=== PATIENT | female | born 1945 | race Caucasian/White ===

== ENCOUNTER → 2017-10-26 | Outpatient (CLI) | payer MEDICARE, OTHER ==
[~2017-10-26] MED LIST: ASPI-586 PO; CHOL200012 PO; FURO40TA4 PO; LOSA50TA36 PO; MULT-974 PO; OMEG300C3 PO
--- NOTE | 2017-10-26 12:56 | Diagnostic Imaging Report ---
INDICATION: Persistent cough. PA and lateral views of the chest are obtained. Comparison is made to study of 12/01/2015. FINDINGS: Heart size and pulmonary vascularity are within normal limits. There is minimal linear atelectasis or scarring in the lung bases. No consolidation is identified. Densely calcified right azygos region lymph node is present. IMPRESSION: Linear atelectasis and/or scarring with evidence of granulomatous residua in the mediastinum. Dictated by: Dictated on workstation # [id number]
== END ==
LOC: RAD 11:22
PROVIDERS: ATTEND Nurse Practitioner Family
DX: J44.9 Chronic obstructive pulmonary disease, unspecified (principal)
CPT/HCPCS: 71046

== ENCOUNTER 2018-08-22 23:09 | Emergency (ER) | payer MEDICARE, OTHER ==
[~2018-08-22] VITALS: Ht 162.6 cm; Wt 104.3 kg
[~2018-08-22 23:09] MED LIST changes: -LOSA50TA36 PO; +LOSA50TA63 PO
--- NOTE | 2018-08-22 23:37 | ED Cardiac General ---
History of Present Illness General Chief Complaint: Cardiac/General Problems Stated Complaint: HIGH BLOOD PRESSURE 208/96 Source: patient Exam Limitations: no limitations History of Present Illness Date Seen by Provider: Aug 22, 2018 Time Seen by Provider: 23:15 Initial Comments PT ARRIVES VIA POV FROM HOME C/O ELEVATED BLOOD PRESSURE PT STATES HER BLOOD PRESSURE HAS BEEN FLUCTUATING ALOT SINCE MAY HAS BEEN SEEING MANAGING DIRECTOR VASU HERRERA AT [facility], LAST VISIT WAS 1 WEEK AGO ( PT IS ESTABLISHED WITH DR. CHEN, BUT HAS NOT SEEN HIM ABOUT THIS PROBLEM) PT HAS BEEN ON CARVEDILOL BID FOR YEARS, WITH NO CHANGES IN DOSES PT WAS ON LISINOPRIL ONCE DAILY, THEN WAS INCREASED TO TWICE A DAY, PT STATES "BUT HE DIDN'T THINK IT WAS DOING A GOOD ENOUGH JOB" AT LOWERING HER BLOOD PRESSURE, SO IT WAS DC'D AND LOSARTAN ONCE A DAY WAS STARTED 1 WEEK AGO PT STATES SHE WAS INSTRUCTED TO CHECK HER BLOOD PRESSURE TWICE A DAY EVERY DAY-- HAVE BEEN RUNNING 130'S TO 170'S SYSTOLIC, 80'S TO 90'S DIASTOLIC, WITH HEART RATE IN 50'S TO 60'S BLOOD PRESSURE READINGS FOR TODAY WERE : 164/94 AT 0630 202/106 AT 1900 208/96 AT 2230 TOOK HER EVENING DOSE OF CARVEDILOL TONIGHT AND 1900 AND IT DID NOT COME DOWN AND "GOT SCARED" AND CAME HERE. STATES IT HAS NEVER BEEN IN THE 200'S BEFORE. PT HAS HISTORY OF ATRIAL FIB AND IS ON ELIQUIS. NO PALPITATIONS PT IS COMPLETELY ASYMPTOMATIC, AND OTHERWISE WOULD NOT KNOW THAT HER BLOOD PRESSURE WAS ELEVATED IF SHE HAD NOT CHECKED IT. NO CHEST PAIN NO SHORTNESS OF BREATH--PT HAS COPD AND IS ALWAYS A LITTLE SHORT OF BREATH NO PALPITATIONS NO HEADACHE NO DIZZINESS NO VISION CHANGES NO NAUSEA/VOMITING NO PARESTHESIAS OR MOTOR DEFICITS NO CHANGE IN CHRONIC LEG SWELLING PCP: [facility], DANIELLE HERRERA BELLMAN DRIVER: DR. CHEN Allergies and Home Medications Allergies Coded Allergies: Sulfa (Sulfonamide Antibiotics) (Verified Allergy, Unknown, 06/24/15) Home Medications Aspirin 81 Mg Tablet.dr, 81 MG PO DAILY, (Reported) Furosemide 40 Mg Tablet, 1 TAB PO DAILY, (Reported) Losartan Potassium 50 Mg Tablet, 75 MG PO DAILY, (Reported) Driggs-3 Fatty Acids 300 Mg Capsule, 300 MG PO DAILY, (Reported) Patient Home Medication List Home Medication List Reviewed: Yes Review of Systems Review of Systems Constitutional: no symptoms reported EENTM: No Symptoms Reported Respiratory: No Symptoms Reported Cardiovascular: No Symptoms Reported, See HPI Gastrointestinal: No Symptoms Reported Genitourinary: No Symptoms Reported Musculoskeletal: no symptoms reported Skin: no symptoms reported Psychiatric/Neurological: No Symptoms Reported Endocrine: No Symptoms Reported Hematologic/Lymphatic: No Symptoms Reported Past Buviskt-Tmihdi-Zxaqeg Hx Patient Social History Alcohol Use: Occasionally Uses Recreational Drug Use: No Smoking Status: Former Smoker (SMOKED 1 PPD FROM [id number]) Type Used: Cigarettes Recent Foreign Travel: No Contact w/Someone Who Travel: No Seasonal Allergies Seasonal Allergies: Yes Past Medical History Surgeries: Yes (CARDIAC CATH--NO INTERVENTION; RIGHT KNEE SURGERY 1981) Adenoidectomy, Orthopedic, Tonsillectomy Respiratory: Yes COPD Cardiac: Yes Atrial Fibrillation, Chronic Edema/Swelling, High Cholesterol, Hypertension Neurological: No 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 0.0oz. 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 Norm as 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 Skin: Normal Color, Warm/Dry Progress/Results/Core Measures Results/Orders Lab Results Laboratory Tests Test 08/22/18 23:38 Range/Units White Blood Count 8.4 4.3-11.0 10^3/uL Red Blood Count 4.51 4.35-5.85 10^6/uL Hemoglobin 12.4 11.5-16.0 G/DL Hematocrit 38 35-52 % Mean Corpuscular Volume 83 80-99 FL Mean Corpuscular Hemoglobin 28 25-34 PG Mean Corpuscular Hemoglobin Concent 33 32-36 G/DL Red Cell Distribution Width 14.7 H 10.0-14.5 % Platelet Count 246 130-400 10^3/uL Mean Platelet Volume 9.8 7.4-10.4 FL Neutrophils (%) (Auto) 63 42-75 % Lymphocytes (%) (Auto) 25 12-44 % Monocytes (%) (Auto) 7 0-12 % Eosinophils (%) (Auto) 4 0-10 % Basophils (%) (Auto) 0 0-10 % Neutrophils # (Auto) 5.3 1.8-7.8 X 10^3 Lymphocytes # (Auto) 2.1 1.0-4.0 X 10^3 Monocytes # (Auto) 0.6 0.0-1.0 X 10^3 Eosinophils # (Auto) 0.3 0.0-0.3 10^3/uL Basophils # (Auto) 0.0 0.0-0.1 10^3/uL Prothrombin Time 13.8 12.2-14.7 SEC INR Comment 1.1 0.8-1.4 Activated Partial Thromboplast Time 40 H 24-35 SEC Sodium Level 140 135-145 MMOL/L Potassium Level 4.0 3.6-5.0 MMOL/L Chloride Level 108 H 98-107 MMOL/L Carbon Dioxide Level 21 21-32 MMOL/L Anion Gap 11 5-14 MMOL/L Blood Urea Nitrogen 13 7-18 MG/DL Creatinine 0.79 0.60-1.30 MG/DL Estimat Glomerular Filtration Rate > 60 BUN/Creatinine Ratio 16 Glucose Level 104 70-105 MG/DL Calcium Level 9.2 8.5-10.1 MG/DL Corrected Calcium 9.1 8.5-10.1 MG/DL Magnesium Level 2.3 1.8-2.4 MG/DL Total Bilirubin 0.3 0.1-1.0 MG/DL Aspartate Amino Transf (AST/SGOT) 15 5-34 U/L Alanine Aminotransferase (ALT/SGPT) 16 0-55 U/L Alkaline Phosphatase 100 40-136 U/L Troponin I < 0.028 <0.028 NG/ML Total Protein 6.8 6.4-8.2 GM/DL Albumin 4.1 3.2-4.5 GM/DL TSH [place] Testing 2.39 0.35-4.94 UIU/ML My Orders Orders - CRISTOPHER MORENO DO Saline Lock/Iv-Start (08/22/18 23:28) Ekg Tracing (08/22/18 23:28) Monitor-Rhythm Ecg Trace Only (08/22/18:28) Cbc With Automated Diff (08/22/18:) Comprehensive Metabolic Panel (08/22/18 23:28) Magnesium (08/22/18 23:28) Protime With Inr (08/22/18 23:28) Partial Thromboplastin Time (08/22/18:28) Thyroid Analyzer (08/22/18 23:28) Troponin I (08/22/18 23:28) Chest 1 View, Ap/Pa Only (08/22/18 23:28) Hydralazine Injection (Apresoline Inject (08/23/18 00:30) Medications Given in ED Current Medications Medications Dose Ordered Sig/Fili Route Start Time Stop Time Status Last Admin Dose Admin Hydralazine HCl 10 mg ONCE ONCE IV 08/23/18 00:30 08/23/18 00:31 DC 08/23/18 00:58 10 MG Vital Signs/I&O 08/22/18 23:18 Temp 98.2 Pulse 60 Resp 20 B/P (MAP) 195/92 (126) Progress Progress Note : Progress Note BLOOD PRESSURE DOWN CONSISTENTLY TO 170'S/80'S ON IT'S OWN GIVEN HYDRALAZINE, AND BLOOD PRESSURE DOWN TO 125/85 , HEART RATE IN 60'S PRIOR TO DISMISSAL UNEVENTFUL ER STAY AND COMPLETELY ASYMPTOMATIC Initial ECG Impression Date: Aug 22, 2018 Initial ECG Impression Time: 23:24 Initial ECG Rate: 57 Initial ECG Rhythm: Normal Sinus Initial ECG Impression: Normal Diagnostic Imaging Comments CXR--NO ACUTE PROCESS, PENDING RADIOLOGIST REVIEW Reviewed: Reviewed by Me Departure Impression Primary Impression: Uncontrolled hypertension Disposition: 01 HOME, SELF-CARE Condition: Improved Departure-Patient Inst. Referrals: SHANTA HICKS DO (PCP) Primary Care Physician CHIKI HERRERA (Family) Primary Care Physician DHIRAJ CHEN MD FACP FAC CCDS Patient Instructions: Controlling Your Blood Pressure Through Lifestyle, DASH Diet, High Blood Pressure (DC) Add. Discharge Instructions: TAKE YOUR MEDICATIONS PRESCRIBED FOLLOW UP WITH DR. CHEN THIS WEEK FOR FURTHER CARE All discharge instructions reviewed with patient and/or family. Voiced understanding. CRISTOPHER MORENO DO Aug 22, 2018 23:37
[2018-08-22 23:46] LABS: BASOPHILS % (AUTO) 0 % (0-10); EOSINOPHILS # (AUTO) 0.3 10^3/uL (0.0-0.3); EOSINOPHILS % (AUTO) 4 % (0-10); HEMATOCRIT 38 % (35-52); HEMOGLOBIN 12.4 G/DL (11.5-16.0); LYMPHOCYTES # (AUTO) 2.1 X 10^3 (1.0-4.0); LYMPHOCYTES % (AUTO) 25 % (12-44); MEAN CORPUSCULAR HEMOGLOBIN 28 PG (25-34); MEAN CORPUSCULAR HGB CONC 33 G/DL (32-36); MEAN CORPUSCULAR VOLUME 83 FL (80-99); MEAN PLATELET VOLUME 9.8 FL (7.4-10.4); MONOCYTES # (AUTO) 0.6 X 10^3 (0.0-1.0); MONOCYTES % (AUTO) 7 % (0-12); NEUTROPHILS # (AUTO) 5.3 X 10^3 (1.8-7.8); NEUTROPHILS % (AUTO) 63 % (42-75); PLATELET COUNT 246 10^3/uL (130-400); RED CELL DISTRIBUTION WIDTH 14.7 % (10.0-14.5); WHITE BLOOD COUNT 8.4 10^3/uL (4.3-11.0)
[2018-08-23 00:02] LABS: INR 1.1 (0.8-1.4); PROTHROMBIN TIME PATIENT 13.8 SEC (12.2-14.7)
[2018-08-23 00:09] LABS: ALANINE AMINOTRANSFERASE 16 U/L (0-55); ALBUMIN 4.1 GM/DL (3.2-4.5); ALKALINE PHOSPHATASE 100 U/L (40-136); BILIRUBIN,TOTAL 0.3 MG/DL (0.1-1.0); BUN/CREATININE RATIO 16; CALCIUM 9.2 MG/DL (8.5-10.1); CARBON DIOXIDE 21 MMOL/L (21-32); CHLORIDE 108 MMOL/L (98-107); CREATININE SERUM 0.79 MG/DL (0.60-1.30); GFR ESTIMATED > 60; GLUCOSE 104 MG/DL (70-105); MAGNESIUM 2.3 MG/DL (1.8-2.4); SODIUM 140 MMOL/L (135-145); TOTAL PROTEIN 6.8 GM/DL (6.4-8.2)
[2018-08-23 00:29] LABS: TSH (THYROID ANALYZER) 2.39 UIU/ML (0.35-4.94)
[2018-08-23] MEDS ORDERED: hydrALAZINE (APESOLINE) 20 MG/ML VIAL IV ONE (00:30)
[2018-08-23 02:02] VITALS: BP 150/77
--- NOTE | 2018-08-23 09:06 | Diagnostic Imaging Report ---
INDICATION: Hypertension. TECHNIQUE: Frontal view of the chest. COMPARISON: 10/26/2017 FINDINGS: Lung volumes are normal. There are linear opacities in the lung bases which likely represent scarring, stable since the prior study. No new consolidation is seen. There is no pleural effusion or pneumothorax. The cardiac silhouette is normal in size and contour. No acute osseous abnormality is seen. IMPRESSION: Stable linear opacities in the lung bases, likely atelectasis or scarring. No new consolidation is seen. Dictated by: Dictated on workstation # [id number]
== END 2018-08-23 02:02 | disposition home or self-care (01) ==
LOC: EDUNIT# 23:09 → ER 23:11
DX: I10 Essential (primary) hypertension (principal); I48.91 Unspecified atrial fibrillation; J44.9 Chronic obstructive pulmonary disease, unspecified; E78.00 Pure hypercholesterolemia, unspecified; Z79.01 Long term (current) use of anticoagulants; Z88.2 Allergy status to sulfonamides; Z79.82 Long term (current) use of aspirin; Z87.891 Personal history of nicotine dependence; Z90.89 Acquired absence of other organs; Z98.890 Other specified postprocedural states
CPT/HCPCS: 36415; 71045; 80053; 83735; 84443; 84484; 85025; 85610; 85730; 93005; 93041

== ENCOUNTER → 2018-08-29 | Outpatient (CLI) | payer MEDICARE, OTHER ==
[~2018-08-29] VITALS: Ht 162.6 cm; Wt 103.4 kg
[~2018-08-29] MED LIST changes: -ASPI-586 PO; +CATHETER FLUSH 10 ML SYR IV PRN; -CHOL200012 PO; -FURO40TA4 PO; -LOSA50TA63 PO; -MULT-974 PO; -OMEG300C3 PO; +REGADENOSON 0.4 MG/5 ML SYR (LEXISCAN) IV ONE
[2018-08-29 08:57] VITALS: BP 148/86
== END ==
LOC: CARD 07:39
PROVIDERS: ATTEND Internal Medicine Cardiovascular Disease
DX: I10 Essential (primary) hypertension (principal); R06.02 Shortness of breath; I48.0 Paroxysmal atrial fibrillation; G47.33 Obstructive sleep apnea (adult) (pediatric); I65.23 Occlusion and stenosis of bilateral carotid arteries
CPT/HCPCS: 78452; 93017

== ENCOUNTER → 2018-12-25 | Outpatient (CLI) | payer MEDICARE, OTHER ==
[~2018-12-25] MED LIST changes: +ASPI-586 PO; -CATHETER FLUSH 10 ML SYR IV PRN; +CHOL200012 PO; +FURO40TA4 PO; +HOLD METFORMIN - RECEIVED CONTRAST 20 ML VIAL IV SCH; +IOHEXOL 350 MG/ML 100 ML (OMNIPAQUE 350) VIAL IV ONE; +LOSA50TA63 PO; +MULT-974 PO; +NS 100 ML (IVPB) BAG IV ONE; +OMEG300C3 PO; -REGADENOSON 0.4 MG/5 ML SYR (LEXISCAN) IV ONE; +RT-ALBUTEROL SULF 2.5 MG/3 ML PRE-MIX VIAL INH ONE
[2018-12-25 08:25] LABS: BUN/CREATININE RATIO 12; CREATININE SERUM 0.84 MG/DL (0.60-1.30); GFR ESTIMATED > 60
--- NOTE | 2018-12-25 09:27 | Diagnostic Imaging Report ---
PROCEDURE: CT chest with contrast only. TECHNIQUE: Multiple contiguous axial images were obtained through the chest after administration of intravenous contrast. Auto Exposure Controls were utilized during the CT exam to meet ALARA standards for radiation dose reduction. INDICATION: COPD. COMPARISON: Correlation is made to prior CT chest from 12/01/2015. FINDINGS: No axillary lymphadenopathy is detected. Calcified lymph nodes in the mediastinum are again seen consistent with prior granulomatous exposure. Small noncalcified lymph nodes in the mediastinum appear stable. No pericardial or pleural fluid is identified. No pulmonary infiltrates, nodules or masses are seen. There are centrilobular emphysematous changes in the upper lungs. Imaging through the upper abdomen again demonstrates hepatic steatosis. No other significant abnormality is seen. IMPRESSION: Overall stable CT chest when compared with exam from 12/01/2015. Dictated by: Dictated on workstation # [id number]
== END ==
LOC: RAD 07:43
PROVIDERS: ATTEND Nurse Practitioner Family
DX: J44.9 Chronic obstructive pulmonary disease, unspecified (principal); G47.33 Obstructive sleep apnea (adult) (pediatric); G47.10 Hypersomnia, unspecified; G47.34 Idiopathic sleep related nonobstructive alveolar hypoventilation; E66.09 Other obesity due to excess calories
CPT/HCPCS: 36415; 71260; 82565; 84520; 94060; 94726; 94729

== ENCOUNTER → 2019-03-06 | Outpatient (CLI) | payer MEDICARE, OTHER ==
[~2019-03-06] MED LIST changes: -HOLD METFORMIN - RECEIVED CONTRAST 20 ML VIAL IV SCH; -IOHEXOL 350 MG/ML 100 ML (OMNIPAQUE 350) VIAL IV ONE; -NS 100 ML (IVPB) BAG IV ONE; -RT-ALBUTEROL SULF 2.5 MG/3 ML PRE-MIX VIAL INH ONE
--- NOTE | 2019-03-06 12:51 | Diagnostic Imaging Report ---
INDICATION: Postmenopausal screening for osteoporosis. COMPARISON: None. FINDINGS: AP Spine L1-L4: [BMD (g/cm2): 1.142] [T-Score: -0.5] [Z-Score: 0.1] [BMD Previous: N/A] [BMD % Change: N/A] LT Hip Neck: [BMD (g/cm2): 0.872] [T-Score: -1.2] [Z-Score: -0.2] LT Hip Total: [BMD (g/cm2):0.997] [T-Score:-0.1] [Z-Score: 0.7] [BMD Previous: N/A] [BMD % Change: N/A] RT Hip Neck: [BMD (g/cm2):0.782] [T-Score:-1.8] [Z-Score:-0.8] RT Hip Total: [BMD (g/cm2):0.948] [T-score:-0.5] [Z-Score:0.3] [BMD Previous:N/A] [BMD % Change:N/A] *Indicates significant change from prior examination based on 95% confidence level. World Health Organization criteria for BMD interpretation classify patients as Normal (T-score at or above -1.0), Osteopenic (T-score between -1.0 and -2.5) or Osteoporotic (T-score at or below -2.5). LIMITATIONS AND MODIFICATION: None. FRACTURE RISK (FRAX SCORE): The ten year probability of (%): Major Osteoporotic Fracture: [N/A] Hip Fracture: [N/A] IMPRESSION: 1. Normal bone mineral density. 2. Baseline examination. 3. See below National Osteoporosis Foundation guidelines on when to potentially initiate pharmacologic therapy. Based on the National Osteoporosis Foundation Guidelines, pharmacologic treatment should be initiated in any of the following, unless clinical conditions suggest otherwise: * Any patient with prior fragility fracture of the hip or vertebrae. A spine fracture indicates 5X risk for subsequent spine fracture and 2X risk for subsequent hip fracture. * Osteoporosis (T-score <-2.5). * Postmenopausal women and men age 50 and older with low bone mass/osteopenia (T-score between -1.0 and -2.5) by DXA and 10-year major osteoporotic fracture greater than 20% or a 10-year probability of hip fracture greater than 3%. These fracture risks are supplied above in the FRAX score, if applicable. * Clinician judgement and/or patient preferences may indicate treatment for people with 10-year fracture probabilities above or below these levels. Dictated by: Dictated on workstation # [id number]
== END ==
LOC: RAD 11:28
PROVIDERS: ATTEND Nurse Practitioner Family
DX: Z00.00 Encounter for general adult medical examination without abnormal findings (principal); Z13.820 Encounter for screening for osteoporosis; Z78.0 Asymptomatic menopausal state
CPT/HCPCS: 77080

== ENCOUNTER 2019-05-03 13:42 | Outpatient (RCR) | payer MEDICARE, OTHER | END 2019-05-03 14:52 | disposition home or self-care (01) | PROVIDERS: ATTEND Physician Assistant | DX: M75.52 Bursitis of left shoulder (principal); M19.012 Primary osteoarthritis, left shoulder; M25.812 Other specified joint disorders, left shoulder ==

== ENCOUNTER → 2020-10-06 | Outpatient (CLI) | payer MEDICARE, OTHER ==
--- NOTE | 2020-10-07 11:49 | Diagnostic Imaging Report ---
EXAMINATION: Digital mammogram bilateral screening with CAD. INDICATION: Screening. COMPARISON: This study was compared to the prior exam of 11/20/2012. PERSONAL HISTORY: At this time, there are no current complaints. FINDINGS: The fibroglandular tissue in both breasts is heterogeneously dense. This does limit the sensitivity of this exam. In the interval since the previous exam, a few benign-appearing calcifications have developed in the left breast. There is also now a small 8 mm well-circumscribed asymmetry lying just anterior to the pectoralis muscle on the MLO view of the left breast. I suspect that this is a small lymph node. There is no primary or secondary sign of malignancy noted. IMPRESSION: 1. There is no evidence of malignancy. 2. The patient should have her annual bilateral screening mammogram on schedule in September 2021. ACR BI-RADS Category 1: Negative. Result letter will be mailed to the patient. Note: At least 10% of breast cancer is not imaged by mammography. Dictated by: Dictated on workstation # [id number]
== END ==
LOC: RAD 10:38
PROVIDERS: ATTEND Nurse Practitioner Family
DX: Z12.31 Encounter for screening mammogram for malignant neoplasm of breast (principal); I10 Essential (primary) hypertension
CPT/HCPCS: 77063; 77067

== ENCOUNTER 2020-12-06 15:29 | Emergency (ER) | payer MEDICARE, OTHER ==
[~2020-12-06] VITALS: Ht 162.5 cm; Wt 99.7 kg
--- NOTE | 2020-12-06 15:41 | ED Cardiac General ---
History of Present Illness General Stated Complaint: CP,JAW, L ARM Source: patient Exam Limitations: no limitations History of Present Illness Date Seen by Provider: December 06, 2020 Time Seen by Provider: 15:38 Initial Comments To ER by private vehicle with reports of palpitations and shortness of breath that began 20 minutes prior to arrival. History of atrial fibrillation she does not believe that she has had it since 2016. She is on Eliquis. She follows with Dr. Chan Timing/Duration: changing over time Severity: moderate Activities at Onset: none NTG SL TAPPER BALANCE WHEEL SCREW HOLE: No ASA po TAPPER BALANCE WHEEL SCREW HOLE: No Associated Systoms: Shortness of Air Allergies and Home Medications Allergies Coded Allergies: Sulfa (Sulfonamide Antibiotics) (Verified Allergy, Unknown, 06/24/15) Home Medications Aspirin 81 Mg Tablet.dr, 81 MG PO DAILY, (Reported) Furosemide 40 Mg Tablet, 1 TAB PO DAILY, (Reported) Losartan Potassium 50 Mg Tablet, 75 MG PO DAILY, (Reported) Hoffman-3 Fatty Acids 300 Mg Capsule, 300 MG PO DAILY, (Reported) Patient Home Medication List Home Medication List Reviewed: Yes Review of Systems Review of Systems Constitutional: see HPI EENTM: No Symptoms Reported Respiratory: See HPI, Shortness of Air Cardiovascular: See HPI, Chest Pain, Irregular Heart Rate, Palpitations Gastrointestinal: No Symptoms Reported Genitourinary: No Symptoms Reported Musculoskeletal: no symptoms reported Skin: no symptoms reported Psychiatric/Neurological: No Symptoms Reported Endocrine: No Symptoms Reported Hematologic/Lymphatic: No Symptoms Reported Past Xekhdnc-Ydyhsg-Fbjofg Hx Patient Social History Alcohol Beverage of Choice: Wine Type Used: Cigarettes Recent Hopitalizations: No Immunizations Up To Date PED Vaccines UTD: Yes Seasonal Allergies Seasonal Allergies: Yes Past Medical History Surgeries: Yes (CARDIAC CATH--NO INTERVENTION; RIGHT KNEE SURGERY 1981) Adenoidectomy, Orthopedic, Tonsillectomy Respiratory: Yes COPD Cardiac: Yes Atrial Fibrillation, Chronic Edema/Swelling, High Cholesterol, Hypertension 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 0.0oz. 103.255847mt; 39.1 BMI Method:Stated General Appearance: No Apparent Distress, WD/WN, Other (Heart rate 150 irregular on arrival atrial fibrillation.) HEENT: PERRL/EOMI, TMs Normal Respiratory: Normal Breath Sounds, No Accessory Muscle Use, No Respiratory Distress Cardiovascular: Irregularly Irregular, Tachycardia Gastrointestinal: Non Tender, Soft Extremity: Normal Capillary Refill, Normal Inspection Neurologic/Psychiatric: Alert, Oriented x3 Skin: Normal Color, Warm/Dry Progress/Results/Core Measures Results/Orders Lab Results Laboratory Tests Test 12/06/20 15:37 12/06/20 15:53 Range/Units White Blood Count 9.8 4.3-11.0 10^3/uL Red Blood Count 4.79 3.80-5.11 10^6/uL Hemoglobin 13.4 11.5-16.0 g/dL Hematocrit 41 35-52 % Mean Corpuscular Volume 86 80-99 fL Mean Corpuscular Hemoglobin 28 25-34 pg Mean Corpuscular Hemoglobin Concent 32 32-36 g/dL Red Cell Distribution Width 14.1 10.0-14.5 % Platelet Count 236 130-400 10^3/uL Mean Platelet Volume 10.3 9.0-12.2 fL Immature Granulocyte % (Auto) 0 % Neutrophils (%) (Auto) 67 42-75 % Lymphocytes (%) (Auto) 22 12-44 % Monocytes (%) (Auto) 7 0-12 % Eosinophils (%) (Auto) 3 0-10 % Basophils (%) (Auto) 0 0-10 % Neutrophils # (Auto) 6.5 1.8-7.8 10^3/uL Lymphocytes # (Auto) 2.2 1.0-4.0 10^3/uL Monocytes # (Auto) 0.7 0.0-1.0 10^3/uL Eosinophils # (Auto) 0.3 0.0-0.3 10^3/uL Basophils # (Auto) 0.0 0.0-0.1 10^3/uL Immature Granulocyte # (Auto) 0.0 0.0-0.1 10^3/uL Sodium Level 141 135-145 MMOL/L Potassium Level 3.6 3.6-5.0 MMOL/L Chloride Level 103 98-107 MMOL/L Carbon Dioxide Level 25 21-32 MMOL/L Anion Gap 13 5-14 MMOL/L Blood Urea Nitrogen 15 7-18 MG/DL Creatinine 0.90 0.60-1.30 MG/DL Estimat Glomerular Filtration Rate > 60 BUN/Creatinine Ratio 17 Glucose Level 107 H 70-105 MG/DL Calcium Level 9.5 8.5-10.1 MG/DL Corrected Calcium 9.3 8.5-10.1 MG/DL Magnesium Level 2.1 1.6-2.4 MG/DL Total Bilirubin 0.4 0.1-1.0 MG/DL Aspartate Amino Transf (AST/SGOT) 18 5-34 U/L Alanine Aminotransferase (ALT/SGPT) 18 0-55 U/L Alkaline Phosphatase 96 40-136 U/L Myoglobin 45.4 10.0-92.0 NG/ML Troponin I < 0.028 <0.028 NG/ML B-Type Natriuretic Peptide 157.6 H <100.0 PG/ML Total Protein 7.2 6.4-8.2 GM/DL Albumin 4.3 3.2-4.5 GM/DL Prothrombin Time 13.2 12.2-14.7 SEC INR Comment 1.0 0.8-1.4 Activated Partial Thromboplast Time 36 H 24-35 SEC My Orders Orders - CAROL MARCOS APRN Cbc With Automated Diff (12/06/20 15:35) Magnesium (12/06/20 15:35) Chest 1 View, Ap/Pa Only (12/06/20 15:35) Ekg Tracing (12/06/20 15:35) Comprehensive Metabolic Panel (12/06/20 15:35) Myoglobin Serum (12/06/20 15:35) Protime With Inr (12/06/20 15:35) Partial Thromboplastin Time (12/06/20 15:35) O2 (12/06/20 15:35) Monitor-Rhythm Ecg Trace Only (12/06/20 15:35) Lipid Panel (12/07/20 06:00) Ed Iv/Invasive Line Start (12/06/20 15:35) BNP (12/06/20 15:35) Troponin I (12/06/20 15:35) Aspirin Chewable Tablet (Baby Aspirin Ch (12/06/20 15:45) Diltiazem Injection (Cardizem Injection) (12/06/20 15:45) Diltiazem Drip Pre-Mix (Cardizem Drip Pr (12/06/20 15:45) Ekg Tracing (12/06/20 15:41) Medications Given in ED Current Medications Medications Dose Ordered Sig/Fili Route Start Time Stop Time Status Last Admin Dose Admin Aspirin 324 mg ONCE ONCE PO 12/06/20 15:45 12/06/20 15:46 DC 12/06/20 15:57 324 MG Departure Communication (Admissions) 1540-despite no intervention she has slowed her rate down to 74 which appears sinus in nature at this time. Will get EKG to confirm. 1642-remains sinus rhythm rate of 72 blood pressure 128/82 Impression Primary Impression: PAF (paroxysmal atrial fibrillation) Disposition: 01 HOME, SELF-CARE Condition: Stable Departure-Patient Inst. Decision time for Depature: 16:43 Referrals: RIA ANDREWS MD (PCP/Family) Primary Care Physician Patient Instructions: Atrial Fibrillation (DC) Add. Discharge Instructions: 1. Return to ER for any concerns. Follow-up with your doctor next week. CAROL MARCOS GUEST ATTENDANT December 06, 2020 15:41
[2020-12-06] MEDS ORDERED: ASPIRIN 81 MG CHEW (CHILDREN'S ASA) PO ONE (15:45)
[2020-12-06] MEDS ORDERED: dilTIAZem DRIP PRE-MIX 125 ML IV SCH (15:45)
[2020-12-06 15:54] LABS: BASOPHILS % (AUTO) 0 % (0-10); EOSINOPHILS # (AUTO) 0.3 10^3/uL (0.0-0.3); EOSINOPHILS % (AUTO) 3 % (0-10); HEMATOCRIT 41 % (35-52); HEMOGLOBIN 13.4 g/dL (11.5-16.0); LYMPHOCYTES # (AUTO) 2.2 10^3/uL (1.0-4.0); LYMPHOCYTES % (AUTO) 22 % (12-44); MEAN CORPUSCULAR HEMOGLOBIN 28 pg (25-34); MEAN CORPUSCULAR HGB CONC 32 g/dL (32-36); MEAN CORPUSCULAR VOLUME 86 fL (80-99); MEAN PLATELET VOLUME 10.3 fL (9.0-12.2); MONOCYTES # (AUTO) 0.7 10^3/uL (0.0-1.0); MONOCYTES % (AUTO) 7 % (0-12); NEUTROPHILS # (AUTO) 6.5 10^3/uL (1.8-7.8); NEUTROPHILS % (AUTO) 67 % (42-75); PLATELET COUNT 236 10^3/uL (130-400); WHITE BLOOD COUNT 9.8 10^3/uL (4.3-11.0)
[2020-12-06 16:02] LABS: ALBUMIN 4.3 GM/DL (3.2-4.5)
[2020-12-06 16:03] LABS: CHLORIDE 103 MMOL/L (98-107); POTASSIUM 3.6 MMOL/L (3.6-5.0); SODIUM 141 MMOL/L (135-145)
[2020-12-06 16:04] LABS: CALCIUM 9.5 MG/DL (8.5-10.1)
[2020-12-06 16:05] LABS: GLUCOSE 107 MG/DL (70-105); TOTAL PROTEIN 7.2 GM/DL (6.4-8.2)
[2020-12-06 16:06] LABS: CARBON DIOXIDE 25 MMOL/L (21-32)
[2020-12-06 16:07] LABS: BILIRUBIN,TOTAL 0.4 MG/DL (0.1-1.0)
[2020-12-06 16:08] LABS: ALKALINE PHOSPHATASE 96 U/L (40-136)
[2020-12-06 16:09] LABS: GFR ESTIMATED > 60
[2020-12-06 16:10] LABS: BUN/CREATININE RATIO 17
[2020-12-06 16:11] LABS: ALANINE AMINOTRANSFERASE 18 U/L (0-55); MAGNESIUM 2.1 MG/DL (1.6-2.4)
[2020-12-06 16:37] LABS: PROTHROMBIN TIME PATIENT 13.2 SEC (12.2-14.7)
--- NOTE | 2020-12-06 16:42 | Diagnostic Imaging Report ---
EXAMINATION: Portable erect AP chest at 3:49 p.m. INDICATION: Chest pain. The heart size is within normal limits and stable when compared to 08/22/2018. In the interval since the prior study a thin band of atelectasis has developed in the left lung base near the apex of the heart. The lungs are otherwise generally clear. The carotid bronchovascular markings in the right infrahilar regions seen previously are again evident and no different. The mediastinum is not widened. The osseous structures are intact. IMPRESSION: Aside from the development of a thin band of atelectasis in the left lung base there has been no significant change since the prior exam. No new abnormality has developed. Dictated by: Dictated on workstation # [id number]
[2020-12-06 16:54] VITALS: BP 123/70
== END 2020-12-06 16:59 | disposition home or self-care (01) ==
LOC: EDUNIT# 15:29 → ER 15:31
DX: I48.0 Paroxysmal atrial fibrillation (principal); I10 Essential (primary) hypertension; J44.9 Chronic obstructive pulmonary disease, unspecified; G89.29 Other chronic pain; M54.9 Dorsalgia, unspecified; Z79.01 Long term (current) use of anticoagulants
CPT/HCPCS: 36415; 71045; 80053; 83735; 83874; 83880; 84484; 85025; 85610; 85730; 93005; 93041

== ENCOUNTER 2021-04-04 18:18 | Inpatient (IN) | payer MEDICARE, OTHER ==
[~2021-04-04] VITALS: Ht 163.5 cm; Wt 105.3 kg
[2021-04-04] MEDS ORDERED: dilTIAZem120 MG (CARDIZEM CD) CAP PO ONE (18:25)
[2021-04-04 18:30] LABS: BASOPHILS # (AUTO) 0.1 10^3/uL (0.0-0.1); BASOPHILS % (AUTO) 1 % (0-10); EOSINOPHILS # (AUTO) 0.5 10^3/uL (0.0-0.3); EOSINOPHILS % (AUTO) 5 % (0-10); HEMATOCRIT 40 % (35-52); HEMOGLOBIN 13.1 g/dL (11.5-16.0); LYMPHOCYTES # (AUTO) 2.3 10^3/uL (1.0-4.0); LYMPHOCYTES % (AUTO) 24 % (12-44); MEAN CORPUSCULAR HEMOGLOBIN 29 pg (25-34); MEAN CORPUSCULAR HGB CONC 33 g/dL (32-36); MEAN CORPUSCULAR VOLUME 88 fL (80-99); MEAN PLATELET VOLUME 10.4 fL (9.0-12.2); MONOCYTES # (AUTO) 0.5 10^3/uL (0.0-1.0); MONOCYTES % (AUTO) 5 % (0-12); NEUTROPHILS # (AUTO) 6.2 10^3/uL (1.8-7.8); NEUTROPHILS % (AUTO) 65 % (42-75); PLATELET COUNT 238 10^3/uL (130-400); WHITE BLOOD COUNT 9.6 10^3/uL (4.3-11.0)
[2021-04-04] MEDS ORDERED: dilTIAZem120 MG (CARDIZEM CD) CAP PO SCH (18:30)
--- NOTE | 2021-04-04 18:30 | ED Cardiac General ---
History of Present Illness General Stated Complaint: AFIB Source: patient Exam Limitations: no limitations History of Present Illness Date Seen by Provider: Apr 04, 2021 Time Seen by Provider: 18:28 Initial Comments To ER with reports that she believes she is in atrial fibrillation. She is only had 3 episodes of atrial fibrillation over the course of the past 5 years. She follows with Dr. Chan. She denies chest pain. This began about 1 hour ago while she was eating. No chest pain. PMH of COPD, MARKOS, PAF, hypertension. Stress test in 2019 here showed no evidence of ischemia. 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 ASA po HYDRAULIC MODELING ENGINEER: No Allergies and Home Medications Allergies Coded Allergies: Sulfa (Sulfonamide Antibiotics) (Verified Allergy, Unknown, 06/24/15) Patient Home Medication List Home Medication List Reviewed: Yes Aspirin (Aspir 81) 81 Mg Tablet.dr, 81 MG PO DAILY, (Reported) Entered as Reported by: MARÍA ROCK on 06/24/15141 Furosemide (Furosemide) 40 Mg Tablet, 1 TAB PO DAILY, (Reported) Entered as Reported by: MARÍA ROCK on 06/24/15141 Losartan Potassium (Losartan Potassium) 50 Mg Tablet, 75 MG PO DAILY, (Reported) Entered as Reported by: MARÍA ROCK on 06/24/15141 [place]-3 Fatty Acids (Fish Oil) 300 Mg Capsule, 300 MG PO DAILY, (Reported) Entered as Reported by: MARÍA ROCK on 06/24/15141 Review of Systems Review of Systems Constitutional: see HPI EENTM: No Symptoms Reported Respiratory: No Symptoms Reported Cardiovascular: See HPI; Denies Chest Pain; Irregular Heart Rate, Palpitations Gastrointestinal: No Symptoms Reported Genitourinary: No Symptoms Reported Musculoskeletal: no symptoms reported Skin: no symptoms reported Psychiatric/Neurological: No Symptoms Reported Endocrine: No Symptoms Reported Hematologic/Lymphatic: No Symptoms Reported Past Fahvdcl-Jfeild-Svowri Hx Immunizations Up To Date PED Vaccines UTD: Yes Seasonal Allergies Seasonal Allergies: Yes Past Medical History Surgeries: Yes (CARDIAC CATH--NO INTERVENTION; RIGHT KNEE SURGERY 1981) Adenoidectomy, Orthopedic, Tonsillectomy Respiratory: Yes COPD Cardiac: Yes Atrial Fibrillation, Chronic Edema/Swelling, High Cholesterol, Hypertension 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 0.0oz. [id number]; 37.00 BMI Method:Stated General Appearance: No Apparent Distress, WD/WN, Other (Alert and oriented no distress very pleasant heart rate is varying from 100-1 39 atrial fibrillation. Blood pressure is adequate at 160/100. We will give a Cardizem 10 mg IV push followed by 240 mg CD tablet p.o. with the hope that we can keep her out of the hospital and still achieve rate control.) Neck: Full Range of Motion, Normal Inspection Respiratory: No Accessory Muscle Use, No Respiratory Distress Cardiovascular: Normal Peripheral Pulses, Irregularly Irregular Gastrointestinal: Normal Bowel Sounds, Non Tender, Soft Extremity: Normal Capillary Refill, Normal Inspection Neurologic/Psychiatric: Alert, Oriented x3 Skin: Normal Color, Warm/Dry Progress/Results/Core Measures Results/Orders Lab Results Laboratory Tests Test 04/04/21 18:23 Range/Units White Blood Count 9.6 4.3-11.0 10^3/uL Red Blood Count 4.60 3.80-5.11 10^6/uL Hemoglobin 13.1 11.5-16.0 g/dL Hematocrit 40 35-52 % Mean Corpuscular Volume 88 80-99 fL Mean Corpuscular Hemoglobin 29 25-34 pg Mean Corpuscular Hemoglobin Concent 33 32-36 g/dL Red Cell Distribution Width 13.9 10.0-14.5 % Platelet Count 238 130-400 10^3/uL Mean Platelet Volume 10.4 9.0-12.2 fL Immature Granulocyte % (Auto) 0 % Neutrophils (%) (Auto) 65 42-75 % Lymphocytes (%) (Auto) 24 12-44 % Monocytes (%) (Auto) 5 0-12 % Eosinophils (%) (Auto) 5 0-10 % Basophils (%) (Auto) 1 0-10 % Neutrophils # (Auto) 6.2 1.8-7.8 10^3/uL Lymphocytes # (Auto) 2.3 1.0-4.0 10^3/uL Monocytes # (Auto) 0.5 0.0-1.0 10^3/uL Eosinophils # (Auto) 0.5 H 0.0-0.3 10^3/uL Basophils # (Auto) 0.1 0.0-0.1 10^3/uL Immature Granulocyte # (Auto) 0.0 0.0-0.1 10^3/uL Prothrombin Time 13.7 12.2-14.7 SEC INR Comment 1.0 0.8-1.4 Activated Partial Thromboplast Time 38 H 24-35 SEC Sodium Level 143 135-145 MMOL/L Potassium Level 3.6 3.6-5.0 MMOL/L Chloride Level 106 98-107 MMOL/L Carbon Dioxide Level 24 21-32 MMOL/L Anion Gap 13 5-14 MMOL/L Blood Urea Nitrogen 17 7-18 MG/DL Creatinine 0.92 0.60-1.30 MG/DL Estimat Glomerular Filtration Rate 60 BUN/Creatinine Ratio 18 Glucose Level 138 H 70-105 MG/DL Calcium Level 9.5 8.5-10.1 MG/DL Corrected Calcium 9.4 8.5-10.1 MG/DL Magnesium Level 2.0 1.6-2.4 MG/DL Total Bilirubin 0.3 0.1-1.0 MG/DL Aspartate Amino Transf (AST/SGOT) 15 5-34 U/L Alanine Aminotransferase (ALT/SGPT) 17 0-55 U/L Alkaline Phosphatase 93 40-136 U/L Myoglobin 38.5 10.0-92.0 NG/ML Troponin I < 0.028 <0.028 NG/ML B-Type Natriuretic Peptide 149.5 H <100.0 PG/ML Total Protein 7.0 6.4-8.2 GM/DL Albumin 4.1 3.2-4.5 GM/DL My Orders Orders - CAROL MARCOS APRN Diltiazem Injection (Cardizem Injection) (04/04/21 18:30) Diltiazem Cd 24 Hr Capsule (Cardizem Cd (04/04/21 18:30) Diltiazem Cd 24 Hr Capsule (Cardizem Cd (04/04/21 18:30) Cbc With Automated Diff (04/04/21 18:25) Magnesium (04/04/21 18:25) Chest 1 View, Ap/Pa Only (04/04/21 18:25) Ekg Tracing (04/04/21 18:25) Comprehensive Metabolic Panel (04/04/21 18:25) Myoglobin Serum (04/04/21 18:25) Protime With Inr (04/04/21 18:25) Partial Thromboplastin Time (04/04/21 18:25) O2 (04/04/21 18:25) Monitor-Rhythm Ecg Trace Only (04/04/21 18:25) Lipid Panel (04/05/21 06:00) Ed Iv/Invasive Line Start (04/04/21 18:25) BNP (04/04/21 18:25) Troponin I (04/04/21 18:25) Diltiazem Cd 24 Hr Capsule (Cardizem Cd (04/04/21 18:25) Diltiazem Injection (Cardizem Injection) (04/04/21 18:26) Diltiazem Drip Pre-Mix (Cardizem Drip Pr (04/04/21 18:50) Diltiazem Drip Pre-Mix (Cardizem Drip Pr (04/04/21 19:30) Medications Given in ED Current Medications Medications Dose Ordered Sig/Fili Route Start Time Stop Time Status Last Admin Dose Admin Diltiazem HCl 10 mg ONCE ONCE IVP 04/04/21 18:30 04/04/21 18:31 DC 04/04/21 18:27 10 MG Vital Signs/I&O 04/04/21 18:21 Pulse 119 Resp 22 B/P (MAP) 166/112 (130) Pulse Ox 96 O2 Delivery Room Air Diagnostic Imaging Diagonstic Imaging: Xray Comments NAME: SUSANNE SUMNER Jodie MED REC#: [id number] PT STATUS: REG ER : 1945 PHYSICIAN: CAROL MARCOS APRN ADMIT DATE: 04/04/21/ER Signed Date of Exam:04/04/21 CHEST 1 VIEW, AP/PA ONLY EXAMINATION: Chest 1 view. HISTORY: Chest pain. COMPARISON: None available. FINDINGS: Heart size and pulmonary vasculature are normal. Mild bibasilar opacities. No pleural effusion or pneumothorax. The osseous structures are intact. IMPRESSION: No acute radiographic abnormality in the chest. Dictated by: Dictated on workstation # [id number] Dict: 04/04/211910 Trans: 04/04/211914 [facility] [id number] Interpreted by: MARÍA CANTU DO Electronically signed by: MARÍA CANTU DO 04/04/211914 Departure Communication (Admissions) 1834-EKG shows atrial fibrillation rate of 139 borderline prolonged QT interval at 485 ms, there is some diffuse ST depression. No ST elevation. 1855-heart rate still A. fib about 150. The 10 mg IV push does not seem to of work. We will initiate a drip at 10 mg an hour. She has had the 240 mg CD capsule. 1920-spoke with Dr. Colindres and Dr. Baugh from cardiology, we will admit, continue Cardizem drip Impression Primary Impression: PAF (paroxysmal atrial fibrillation) Additional Impression: Atrial fibrillation with RVR Disposition: ADMITTED INPATIENT Condition: Stable Admissions Decision to Admit Reason: Admit from ER (General) Decision to Admit/Date: Apr 04, 2021 Time/Decision to Admit Time: 18:57 Departure-Patient Inst. Referrals: CHIKI HERRERA (PCP/Family) Primary Care Physician CAROL MARCOS APRN Apr 04, 2021 18:30
[2021-04-04 18:38] LABS: ALBUMIN 4.1 GM/DL (3.2-4.5); POTASSIUM 3.6 MMOL/L (3.6-5.0)
[2021-04-04 18:39] LABS: CALCIUM 9.5 MG/DL (8.5-10.1)
[2021-04-04 18:42] LABS: BILIRUBIN,TOTAL 0.3 MG/DL (0.1-1.0); PROTHROMBIN TIME PATIENT 13.7 SEC (12.2-14.7)
[2021-04-04 18:44] LABS: CREATININE SERUM 0.92 MG/DL (0.60-1.30)
[2021-04-04] MEDS ORDERED: dilTIAZem DRIP PRE-MIX 125 ML IV ONE (18:50)
--- NOTE | 2021-04-04 19:16 | Diagnostic Imaging Report ---
EXAMINATION: Chest 1 view. HISTORY: Chest pain. COMPARISON: None available. FINDINGS: Heart size and pulmonary vasculature are normal. Mild bibasilar opacities. No pleural effusion or pneumothorax. The osseous structures are intact. IMPRESSION: No acute radiographic abnormality in the chest. Dictated by: Dictated on workstation # [id number]
[2021-04-04] MEDS ORDERED: dilTIAZem DRIP PRE-MIX 125 ML IV SCH ×2 (19:30→20:45)
[2021-04-04] MEDS ORDERED: LACTATED RINGERS 1,000 ML IV SCH (20:00)
[2021-04-04] MEDS ORDERED: doxAzosin 2 MG (CARDURA) TAB PO SCH (21:00)
[2021-04-04] MEDS: APIXABAN 5 MG (ELIQUIS) TABLET PO SCH (21:20)
[2021-04-05 04:53] LABS: BASOPHILS % (AUTO) 0 % (0-10); EOSINOPHILS # (AUTO) 0.4 10^3/uL (0.0-0.3); EOSINOPHILS % (AUTO) 4 % (0-10); HEMATOCRIT 35 % (35-52); HEMOGLOBIN 11.3 g/dL (11.5-16.0); LYMPHOCYTES # (AUTO) 2.4 10^3/uL (1.0-4.0); LYMPHOCYTES % (AUTO) 27 % (12-44); MEAN CORPUSCULAR HEMOGLOBIN 28 pg (25-34); MEAN CORPUSCULAR HGB CONC 32 g/dL (32-36); MEAN CORPUSCULAR VOLUME 87 fL (80-99); MEAN PLATELET VOLUME 10.6 fL (9.0-12.2); MONOCYTES # (AUTO) 0.6 10^3/uL (0.0-1.0); MONOCYTES % (AUTO) 6 % (0-12); NEUTROPHILS # (AUTO) 5.6 10^3/uL (1.8-7.8); NEUTROPHILS % (AUTO) 62 % (42-75); PLATELET COUNT 200 10^3/uL (130-400)
[2021-04-05 05:03] LABS: ALBUMIN 3.3 GM/DL (3.2-4.5)
[2021-04-05 05:04] LABS: CALCIUM 8.6 MG/DL (8.5-10.1)
[2021-04-05 05:06] LABS: TOTAL PROTEIN 5.7 GM/DL (6.4-8.2)
[2021-04-05 05:07] LABS: BILIRUBIN,TOTAL 0.3 MG/DL (0.1-1.0)
[2021-04-05 05:09] LABS: CREATININE SERUM 0.82 MG/DL (0.60-1.30); PHOSPHORUS 3.8 MG/DL (2.3-4.7)
--- NOTE | 2021-04-05 06:41 | Short Stay Summary-Hospitalist ---
History of Present Illness HPI/Chief Complaint Chief complaint: Atrial fibrillation with rapid ventricular response History of present illness: This is a 75-year-old white female clinic patient of Dr. Chan who has a history of paroxysmal atrial fibrillation and bradycardia who presented to the ER with palpitations when preparing to go to the [employer] football game. She was found to have A. fib with RVR required Cardizem drip maintained on Eliquis and Dr. Baugh was consulted. Patient is currently doing very well bradycardia continues but she is ready to go home. Source: patient, family Exam Limitations: no limitations Date Seen 04/05/21 Time Seen by a Provider: 12:00 Attending Physician Ella Colindres Michael R Cfnp Referring Physician Date of Admission Apr 04, 2021 at 19:19 Home Medications & Allergies Home Medications Reviewed patient Home Medication Reconciliation performed by pharmacy medication reconciliations hydrology technician and/or nursing. Patients Allergies have been reviewed. Allergies Allergies Coded Allergies Sulfa (Sulfonamide Antibiotics) (Verified Allergy, Unknown, 06/24/15) Past Htufcmo-Sdweyc-Mdnnjr Hx Patient Social History Marrital Status: Employed/Student: retired Tobacco Use?: No Smoking Status: Former Smoker Smokeless Tobacco Frequency: Never a User Use of E-Cig and/or Vaping dev: No Substance use?: No Alcohol Use?: Yes Alcohol type: Wine Alcohol Frequency: Once in a while Pt feels they are or have been: No Immunizations Up To Date First/Initial COVID19 Vaccinat: JUL 2020 Second COVID19 Vaccination Rolo: SEPTEMBER 2020 Tetanus Booster (TDap): Unknown PED Vaccines UTD: Yes Seasonal Allergies Seasonal Allergies: Yes Current Status status: No Advance Directives: No Communicates: Verbally Primary Language: Djiboutian Preferred Spoken Language: Djiboutian Is interpretation needed?: No Implanted or Applied Medical D: Orthopedic hardware Past Medical History Surgeries: Adenoidectomy, Orthopedic, Tonsillectomy COPD Atrial Fibrillation, Chronic Edema/Swelling, High Cholesterol, Hypertension 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 Chronic Back Pain, Fractures Blood Disorders: No Adverse Reaction/Blood Tranf: No Review of Systems Constitutional: see HPI EENTM: no symptoms reported Respiratory: no symptoms reported Cardiovascular: palpitations Gastrointestinal: no symptoms reported Genitourinary: no symptoms reported Musculoskeletal: no symptoms reported Skin: no symptoms reported Psychiatric/Neurological: No Symptoms Reported All Other Systems Reviewed Negative Unless Noted: Yes Physical Exam Physical Exam Vital Signs Vital Signs - First Documented 04/04/21 04/04/21 04/04/21 18:21 20:44 23:40 Temp 36.2 Pulse 119 Resp 22 B/P (MAP) 166/112 (130) Pulse Ox 96 O2 Delivery Room Air O2 Flow Rate 2.00 Capillary Refill : Less Than 3 Seconds Height, Weight, BMI Height: 5'4.00" Weight: 228lbs. 0.0oz. 103.082486dh; 39.01 BMI Method:Stated General Appearance: No Apparent Distress, WD/WN, Chronically ill, Other (Alert and oriented no distress very pleasant heart rate is varying from 100-1 39 atrial fibrillation. Blood pressure is adequate at 160/100. We will give a Cardizem 10 mg IV push followed by 240 mg CD tablet p.o. with the hope that we can keep her out of the hospital and still achieve rate control.) Eyes: Bilateral Eye Normal Inspection, Bilateral Eye PERRL HEENT: PERRL/EOMI, Normal ENT Inspection, Pharynx Normal Neck: Full Range of Motion, Normal Inspection Respiratory: No Accessory Muscle Use, No Respiratory Distress Cardiovascular: Normal Peripheral Pulses, Irregularly Irregular Gastrointestinal: Normal Bowel Sounds, Non Tender, Soft Back: Normal Inspection, No CVA Tenderness, No Vertebral Tenderness Extremity: Normal Capillary Refill, Normal Inspection Neurologic/Psychiatric: Alert, Oriented x3 Skin: Normal Color, Warm/Dry Lymphatic: No Adenopathy Results Results/Procedures Labs Laboratory Tests 04/04/21 18:23 04/05/21 04:34 Patient resulted labs reviewed. Short Stay Diagnosis Discharge Diagnosis-Short Stay Admission Diagnosis Atrial fibrillation with rapid ventricular response On oral anticoagulation History of paroxysmal atrial fibrillation Bradycardia Final Discharge Diagnosis Atrial fibrillation with rapid ventricular response On oral anticoagulation History of paroxysmal atrial fibrillation Bradycardia Conclusion Plan Supportive care Discharge home Diagnosis/Problems Diagnosis/Problems (1) Atrial fibrillation with RVR Status: Acute Clinical Quality Measures AMI/AHF: ASA po Prior to arrival: ELLA Johnston DO Apr 05, 2021 06:41
[2021-04-05] MEDS: APIXABAN 5 MG (ELIQUIS) TABLET PO SCH (08:00)
[2021-04-05] MEDS ORDERED: MONTELUKAST 10 MG (SINGULAIR) TAB PO SCH (09:00)
[2021-04-05] MEDS ORDERED: ASPIRIN E.C. 81 MG (ECOTRIN) TAB PO SCH (09:00)
[2021-04-05] MEDS ORDERED: LOSARTAN 50 MG (COZAAR) TAB PO SCH (09:00)
--- NOTE | 2021-04-05 12:49 | Consultation-Cardiology ---
HPI-Cardiology Cardiology Consultation: Date of Consultation 04/05/2021 Date of Admission 04/04/2021 Attending Physician Ella Colindres DO Admitting Physician Alfonzo Brock Consulting Physician DODIE PIERRE JR, MD HPI: Time Seen by a Provider: 12:43 Chief Complaint: Reason for consultation: Atrial fibrillation. I had the pleasure of seeing Regina in the intensive care unit at [facility] in [place], [place] today. She normally follows with one of my partners, Dr. Chan. She had actually just seen him about 2 weeks ago for follow-up and she had been doing well. There were no changes made to her medications at that time. She has a history of paroxysmal atrial fibrillation, hypertension, mild hyperlipidemia, mild bilateral carotid atherosclerosis, obstructive sleep apnea and obesity. Yesterday she had finished dinner and was on her way to the football game with her . She suddenly developed palpitations with a sensation of a fluttering in her chest. This made her chest feels somewhat tight. She knew that she had recurrent atrial fibrillation. She tried coughing which has made the atrial fibrillation stop in the past. However, she could not get the palpitations to stop. Therefore, her drove her to the emergency room for further evaluation. She was found to be in atrial fibrillation with a rapid ventricular rate. She was given intravenous diltiazem which slowed her rate but did not converted to sinus rhythm. She was then admitted to the intensive care unit on intravenous diltiazem. While she was being transferred from the emergency room up to the intensive care unit, she converted back to sinus rhythm. The diltiazem infusion was discontinued. She has not had any further atrial fibrillation overnight. She denies any recurrent palpitations. She denies any chest discomfort when she is not having palpitations. She denies dyspnea, paroxysmal nocturnal dyspnea, orthopnea, palpitations, lightheadedness, or syncope. She has chronic, mild ankle edema which is unchanged. Certain portions of this document may have been dictated utilizing voice recogn ition technology. Inherent to this technology, typographical and grammatical errors may exist. As much as I am diligent to identify and correct these mistakes, some errors may remain in the document. Review of Systems-Cardiology Review of Systems Other comments Review of 10 organ systems is as per the history of present illness, otherwise negative. LAH-Nlzekv-Ehilwn Hx Patient Social History Marrital Status: Smoking Status: Former Smoker Have you traveled recently?: No Alcohol Use?: Yes Pt feels they are or have been: No Past Medical History PMH As described under Assessment. Family Medical History Family Medical History: The patient does not know of any family history of premature coronary artery disease. Allergies and Home Medications Allergies Coded Allergies: Sulfa (Sulfonamide Antibiotics) (Verified Allergy, Unknown, 06/24/15) Patient Home Medication List Home Medication List Reviewed: Yes Aspirin (Aspir 81) 81 Mg Tablet.dr, 81 MG PO DAILY, (Reported) Entered as Reported by: MARÍA ROCK on 06/24/15141 Furosemide (Furosemide) 40 Mg Tablet, 1 TAB PO DAILY, (Reported) Entered as Reported by: MARÍA ROCK on 06/24/15141 Losartan Potassium (Losartan Potassium) 50 Mg Tablet, 75 MG PO DAILY, (Reported) Entered as Reported by: MARÍA ROCK on 06/24/15141 [place]-3 Fatty Acids (Fish Oil) 300 Mg Capsule, 300 MG PO DAILY, (Reported) Entered as Reported by: MARÍA ROCK on 06/24/15141 Exam Vital Signs Vital Signs Date Time Temp Pulse Resp B/P (MAP) Pulse Ox O2 Delivery O2 Flow Rate FiO2 04/05/21 12:00 39 18 95/58 94 Nasal Cannula 2.00 04/05/21 08:14 35.9 Physical Exam General: Alert. No acute distress. Well nourished and appears stated age. She is obese. Eye: Extraocular movements are intact. Conjunctivae are clear. There are no xanthelasma. HENT: Normocephalic. Atraumatic. Carotid pulsations 2/2 without bruits. Neck: Jugular venous pressure does not appear elevated. No thyromegaly appreciated. Respiratory: Lungs are clear to auscultation. Respirations are non-labored. Breath sounds are equal. Symmetrical chest wall expansion. Cardiovascular: Bradycardic. Regular rhythm. No murmur. No gallop. Point of maximal impulse is not appear displaced. Good pulses equal in all extremities. 1+ bilateral pretibial edema. Gastrointestinal: Soft. Normal bowel sounds. Skin: Skin turgor is normal. There is no pallor. Musculoskeletal: No kyphosis or scoliosis appreciated. Neurologic: Alert and oriented to person, place, time. Cranial nerves 3-12 appear grossly intact. The patient has good motor tone strength in the upper and lower extremities bilaterally. Psychiatric: Cooperative. Appropriate mood & affect. Labs Laboratory Tests Test 04/04/21 18:23 04/05/21 04:34 Range/Units White Blood Count 9.6 9.0 4.3-11.0 10^3/uL Red Blood Count 4.60 4.04 3.80-5.11 10^6/uL Hemoglobin 13.1 11.3 L 11.5-16.0 g/dL Hematocrit 40 35 35-52 % Mean Corpuscular Volume 88 87 80-99 fL Mean Corpuscular Hemoglobin 29 28 25-34 pg Mean Corpuscular Hemoglobin Concent 33 32 32-36 g/dL Red Cell Distribution Width 13.9 13.8 10.0-14.5 % Platelet Count 238 200 130-400 10^3/uL Mean Platelet Volume 10.4 10.6 9.0-12.2 fL Immature Granulocyte % (Auto) 0 0 % Neutrophils (%) (Auto) 65 62 42-75 % Lymphocytes (%) (Auto) 24 27 12-44 % Monocytes (%) (Auto) 5 6 0-12 % Eosinophils (%) (Auto) 5 4 0-10 % Basophils (%) (Auto) 1 0 0-10 % Neutrophils # (Auto) 6.2 5.6 1.8-7.8 10^3/uL Lymphocytes # (Auto) 2.3 2.4 1.0-4.0 10^3/uL Monocytes # (Auto) 0.5 0.6 0.0-1.0 10^3/uL Eosinophils # (Auto) 0.5 H 0.4 H 0.0-0.3 10^3/uL Basophils # (Auto) 0.1 0.0 0.0-0.1 10^3/uL Immature Granulocyte # (Auto) 0.0 0.0 0.0-0.1 10^3/uL Prothrombin Time 13.7 12.2-14.7 SEC INR Comment 1.0 0.8-1.4 Activated Partial Thromboplast Time 38 H 24-35 SEC Sodium Level 143 139 135-145 MMOL/L Potassium Level 3.6 4.0 3.6-5.0 MMOL/L Chloride Level 106 108 H 98-107 MMOL/L Carbon Dioxide Level 24 20 L 21-32 MMOL/L Anion Gap 13 11 5-14 MMOL/L Blood Urea Nitrogen 17 21 H 7-18 MG/DL Creatinine 0.92 0.82 0.60-1.30 MG/DL Estimat Glomerular Filtration Rate 60 68 BUN/Creatinine Ratio 18 26 Glucose Level 138 H 115 H 70-105 MG/DL Calcium Level 9.5 8.6 8.5-10.1 MG/DL Corrected Calcium 9.4 9.2 8.5-10.1 MG/DL Magnesium Level 2.0 2.0 1.6-2.4 MG/DL Total Bilirubin 0.3 0.3 0.1-1.0 MG/DL Aspartate Amino Transf (AST/SGOT) 15 14 5-34 U/L Alanine Aminotransferase (ALT/SGPT) 17 15 0-55 U/L Alkaline Phosphatase 93 73 40-136 U/L Myoglobin 38.5 10.0-92.0 NG/ML Troponin I < 0.028 0.045 H <0.028 NG/ML B-Type Natriuretic Peptide 149.5 H <100.0 PG/ML Total Protein 7.0 5.7 L 6.4-8.2 GM/DL Albumin 4.1 3.3 3.2-4.5 GM/DL Phosphorus Level 3.8 2.3-4.7 MG/DL Triglycerides Level 89 <150 MG/DL Cholesterol Level 150 < 200 MG/DL LDL Cholesterol Direct 104 1-129 MG/DL VLDL Cholesterol 18 5-40 MG/DL HDL Cholesterol 40 40-60 MG/DL ECG Impression ECG Comment Electrocardiogram from admission on 04/04 at 18: 23 showed atrial fibrillation with a ventricular rate of [address] depression. Electrocardiogram from 04/05 at 04: 25 shows sinus bradycardia at 44 bpm with early transition, possibly V2-V3 were reversed. Diagnosis/Problems Diagnosis/Problems (1) Paroxysmal atrial fibrillation Assessment & Plan: She had recurrent atrial fibrillation. This is only her fourth documented episode. She is on carvedilol for rate control and apixaban for stroke prophylaxis. She is now back in sinus rhythm. From a cardiac standpoint, she can be discharged home. I will have our office schedule a follow-up echocardiogram and then a follow-up appointment with Dr. Chan after the echocardiogram. Given the recurrent atrial fibrillation, she might benefit from antiarrhythmic drug therapy at this point in time. However, I will leave this up to the discretion of her regular master fire control technician. (2) Primary hypertension Assessment & Plan: Blood pressure appears well controlled with her regular outpatient medications. These should be continued. (3) Mixed hyperlipidemia Assessment & Plan: Her LDL during this admission was mildly elevated. She does have carotid atherosclerosis. She may benefit from a low dose of statin medication. I will leave this up to the discretion of her primary provider and regular master fire control technician. (4) Atherosclerosis of both carotid arteries Assessment & Plan: As above, she has mild bilateral disease with no previous history of stroke. (5) Obstructive sleep apnea of adult Assessment & Plan: Continue with CPAP. (6) Obesity Assessment & Plan: She needs to work on weight loss. There is strong evidence that 20 pounds of weight loss will help reduce the risk of recurrent episodes of atrial fibrillation. DODIE PIERRE JR, MD Apr 05, 2021 12:49
[2021-04-05] MEDS ORDERED: APIX5TAB PO (13:26)
[2021-04-05] MEDS ORDERED: CARV25TA PO (13:29)
[2021-04-05] MEDS ORDERED: POTA-51 PO (13:30)
[2021-04-05] MEDS ORDERED: MONT10TA32 PO (13:31)
[2021-04-05] MEDS ORDERED: DOXA2TAB2 PO (13:32)
[2021-04-05] MEDS ORDERED: NAPR-1070 PO (13:33)
[2021-04-05] MEDS ORDERED: HYDR12.56 PO (13:33)
[2021-04-05] MEDS ORDERED: TIOT18CA2 IH (13:34)
[2021-04-05] MEDS ORDERED: LACT1CAP62 PO (13:37)
[2021-04-05] MEDS ORDERED: ACET325C7 PO (13:37)
[2021-04-05] MEDS ORDERED: OMEG-82 PO (13:37)
[2021-04-05] MEDS ORDERED: FLUT12AE4 IH (13:37)
[2021-04-05 14:20] VITALS: BP 104/56
== END 2021-04-05 14:54 | disposition home or self-care (01) | DRG 310 ==
LOC: EDUNIT# 18:18 → ER 18:19 → ICU 19:19
PROVIDERS: ADMIT Internal Medicine; ATTEND Internal Medicine
DX: I48.0 Paroxysmal atrial fibrillation (principal); Z87.891 Personal history of nicotine dependence; J44.9 Chronic obstructive pulmonary disease, unspecified; I10 Essential (primary) hypertension; G89.29 Other chronic pain; M54.9 Dorsalgia, unspecified; Z79.01 Long term (current) use of anticoagulants; R00.1 Bradycardia, unspecified; G47.33 Obstructive sleep apnea (adult) (pediatric); Z79.82 Long term (current) use of aspirin; Z79.899 Other long term (current) drug therapy; E66.9 Obesity, unspecified; I65.23 Occlusion and stenosis of bilateral carotid arteries; E78.2 Mixed hyperlipidemia; Z68.39 Body mass index [BMI] 39.0-39.9, adult
CPT/HCPCS: 36415; 71045; 80053; 80061; 83735; 83874; 83880; 84100; 84484; 85025; 85610; 85730; 87081; 93005; 93041

== ENCOUNTER → 2021-04-10 | Outpatient (CLI) | payer MEDICARE, OTHER ==
[~2021-04-10] MED LIST changes: +ACET325C7 PO; +APIX5TAB PO; +CARV25TA PO; +DOXA2TAB2 PO; +FLUT12AE4 IH; +HYDR12.56 PO; +LACT1CAP62 PO; +MONT10TA32 PO; +NAPR-1070 PO; +OMEG-82 PO; +POTA-51 PO; +TIOT18CA2 IH
== END ==
LOC: CARD 15:00
PROVIDERS: ATTEND Nurse Practitioner Family
DX: I34.0 Nonrheumatic mitral (valve) insufficiency (principal); I48.0 Paroxysmal atrial fibrillation; I51.7 Cardiomegaly
CPT/HCPCS: 93306

== ENCOUNTER 2022-05-22 12:45 | Emergency (ER) | payer MEDICARE, OTHER ==
[~2022-05-22] VITALS: Ht 162.6 cm; Wt 91.6 kg
[~2022-05-22 12:45] MED LIST changes: +MONT-40 PO; -MONT10TA32 PO
--- NOTE | 2022-05-22 13:16 | ED Cardiac General ---
History of Present Illness General Chief Complaint: Cardiac/General Problems Stated Complaint: RAPID HEART RATE Nursing Triage Note: PT AMB TO ED BY POV WITH C/O RAPID HR. PT REPORTS SHE HAS HX OF AFIB, DOES NOT TAKE ANY MEDICATIONS FOR IT. PT REPORTS SHE HAD A COUGHING FIT AND FELT LIKE SHE WENT INTO A FIB AFTER. PT DENIES CP OR SOB A THIS TIME. Source: patient Exam Limitations: no limitations History of Present Illness Date Seen by Provider: May 22, 2022 Time Seen by Provider: 13:00 Initial Comments Pt presents for rapid heart rate. States she has had this happen 4x in the past. Has h/o afib, on eliquis and carvedilol. No CP, SOB, dizziness. No medication changes. Allergies and Home Medications Allergies Coded Allergies: Sulfa (Sulfonamide Antibiotics) (Verified Allergy, Unknown, 06/24/15) Patient Home Medication List Home Medication List Reviewed: Yes Acetaminophen (Tylenol) Unknown Strength Capsule, Unknown Dose PO NEEDED, (Reported) Entered as Reported by: ANDER TEIXEIRA on 04/05/21 1337 Apixaban (Eliquis) 5 Mg Tablet, 5 MG PO BID, (Reported) Entered as Reported by: ANDER TEIXEIRA on 04/05/21 1326 Carvedilol (Carvedilol) 25 Mg Tablet, 25 MG PO BID, (Reported) Entered as Reported by: ANDER TEIXEIRA on 04/05/21 1329 Doxazosin Mesylate (Doxazosin Mesylate) 2 Mg Tablet, 2 MG PO DAILY, (Reported) Entered as Reported by: ANDER TEIXEIRA on 04/05/21 1332 Fluticasone/Salmeterol (Advair Hfa 115-21 Mcg Inhaler) 12 Gm Hfa.aer.ad, 12 GM IH DAILY, (Reported) Entered as Reported by: ANDER TEIXEIRA on 04/05/21 1337 Furosemide (Furosemide) 40 Mg Tablet, 1 TAB PO DAILY, (Reported) Entered as Reported by: MARÍA ROCK on 06/24/15 0142 Hydrochlorothiazide (Hydrochlorothiazide) 12.5 Mg Tablet, 12.5 MG PO DAILY, (Reported) Entered as Reported by: ANDER TEIXEIRA on 04/05/21 1333 Lactobacillus Acidophilus (Probiotic) 1 Each Capsule, 1 EACH PO DAILY, (Reported) Entered as Reported by: ANDER TEIXEIRA on 04/05/21 1337 Losartan Potassium (Losartan Potassium) 50 Mg Tablet, 50 MG PO DAILY, (Reported) Entered as Reported by: MARÍA ROCK on 06/24/15 014 Montelukast Sodium (Montelukast Sodium) 10 Mg Tablet, 10 MG PO DAILY, (Reported) Entered as Reported by: ANDER TEIXEIRA on 04/05/21 133 [place]-3 Fatty Acids (Fish Oil) 300 Mg Capsule, 300 MG PO DAILY, (Reported) Entered as Reported by: MARÍA ROCK on 06/24/15 014 Potassium Chloride (Potassium Chloride) 20 Meq Tablet.er, 20 MEQ PO DAILY, (Reported) Entered as Reported by: ANDER TEIXEIRA on 04/05/21 1330 Tiotropium [place] (Spiriva) 1 Inh Aerp, 1 INH IH DAILY, (Reported) Entered as Reported by: ANDER TEIXEIRA on 04/05/21 1334 Review of Systems Review of Systems Constitutional: no symptoms reported EENTM: No Symptoms Reported Respiratory: No Symptoms Reported Cardiovascular: Palpitations Gastrointestinal: No Symptoms Reported Genitourinary: No Symptoms Reported Musculoskeletal: no symptoms reported Skin: no symptoms reported Psychiatric/Neurological: No Symptoms Reported Endocrine: No Symptoms Reported Hematologic/Lymphatic: No Symptoms Reported Past Sydcakp-Nrmpnx-Ejrozp Hx Patient Social History Tobacco Use?: No Use of E-Cig and/or Vaping dev: No Substance use?: No Alcohol Use?: No Pt feels they are or have been: No Immunizations Up To Date PED Vaccines UTD: Yes Influenza Vaccine Up-to-Date: Yes; Up-to-Date First/Initial COVID19 Vaccinat: JUL 2020 Second COVID19 Vaccination Rolo: SEPTEMBER 2020 Third COVID19 Vaccination Date: 2020 Seasonal Allergies Seasonal Allergies: Yes Past Medical History Surgery/Hospitalization HX: AFIB, HTN Surgeries: Yes (CARDIAC CATH--NO INTERVENTION; RIGHT KNEE SURGERY 1981) Adenoidectomy, Orthopedic, Tonsillectomy Respiratory: Yes COPD Cardiac: Yes Atrial Fibrillation, Chronic Edema/Swelling, High Cholesterol, Hypertension 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 0.0oz. 103.433029zh; 34.00 BMI Method:Stated General Appearance: No Apparent Distress, WD/WN HEENT: Normal ENT Inspection, Pharynx Normal Neck: Full Range of Motion, Normal Inspection, Non Tender, Supple Respiratory: Chest Non Tender, Lungs Clear, Normal Breath Sounds, No Accessory Muscle Use, No Respiratory Distress Cardiovascular: No Edema, No Gallop, No JVD, No Murmur, Normal Peripheral Pulses, Irregularly Irregular, Tachycardia Gastrointestinal: Normal Bowel Sounds, No Organomegaly, No Pulsatile Mass, Non Tender, Soft Extremity: Normal Capillary Refill, Normal Inspection, Normal Range of Motion, Non Tender, No Calf Tenderness, No Pedal Edema Neurologic/Psychiatric: Alert, Oriented x3, No Motor/Sensory Deficits Skin: Normal Color, Warm/Dry Lymphatic: No Adenopathy Progress/Results/Core Measures Results/Orders Lab Results Laboratory Tests Test 05/22/22 13:00 Range/Units White Blood Count 7.7 4.3-11.0 10^3/uL Red Blood Count 4.71 3.80-5.11 10^6/uL Hemoglobin 13.2 11.5-16.0 g/dL Hematocrit 41 35-52 % Mean Corpuscular Volume 86 80-99 fL Mean Corpuscular Hemoglobin 28 25-34 pg Mean Corpuscular Hemoglobin Concent 33 32-36 g/dL Red Cell Distribution Width 13.5 10.0-14.5 % Platelet Count 236 130-400 10^3/uL Mean Platelet Volume 10.5 9.0-12.2 fL Immature Granulocyte % (Auto) 0 % Neutrophils (%) (Auto) 68 42-75 % Lymphocytes (%) (Auto) 21 12-44 % Monocytes (%) (Auto) 6 0-12 % Eosinophils (%) (Auto) 4 0-10 % Basophils (%) (Auto) 1 0-10 % Neutrophils # (Auto) 5.2 1.8-7.8 10^3/uL Lymphocytes # (Auto) 1.6 1.0-4.0 10^3/uL Monocytes # (Auto) 0.5 0.0-1.0 10^3/uL Eosinophils # (Auto) 0.3 0.0-0.3 10^3/uL Basophils # (Auto) 0.1 0.0-0.1 10^3/uL Immature Granulocyte # (Auto) 0.0 0.0-0.1 10^3/uL Sodium Level 140 135-145 MMOL/L Potassium Level 3.5 L 3.6-5.0 MMOL/L Chloride Level 104 98-107 MMOL/L Carbon Dioxide Level 24 21-32 MMOL/L Anion Gap 12 5-14 MMOL/L Blood Urea Nitrogen 14 7-18 MG/DL Creatinine 0.85 0.60-1.30 MG/DL Estimat Glomerular Filtration Rate 71 BUN/Creatinine Ratio 16 Glucose Level 111 H 70-105 MG/DL Calcium Level 9.4 8.5-10.1 MG/DL Magnesium Level 2.0 1.6-2.4 MG/DL Troponin I < 0.028 <0.028 NG/ML My Orders Orders - OLAF ZACARIAS DO Ekg Tracing (05/22/22 12:51) Magnesium (05/22/22 13:10) Basic Metabolic Panel (05/22/22 13:10) Cbc With Automated Diff (05/22/22 13:10) Troponin I [place] (05/22/22 13:25) Etomidate Injection (Amidate Injection) (05/22/22 13:45) Ekg Tracing (05/22/22 14:17) Vital Signs/I&O 05/22/22 12:48 Temp 36.6 Pulse 140 Resp 17 B/P (MAP) 111/98 (102) Pulse Ox 95 O2 Delivery Room Air Blood Pressure Mean: 102 EKG : Comment A. fib with a rate of 133 beats minute. Normal intervals outside of GA interval. Normal axis. No ST or T wave abnormalities. No ectopy. No STEMI. Departure Communication (Admissions) 1320: Nurse notified me that the patient is now having some chest tightness up into her neck. We will go ahead and add a troponin onto her work-up and plan for cardioversion soon. Troponin negative. We are setting up to cardiovert the patient and her rhythm converted to a sinus rhythm while we are hooking up the patches. She remained hemodynamically stable. She was ordered for some period after this and maintained sinus rhythm. She is discharged in stable condition with close follow-up. Potassium was slightly low, repleted orally Impression Primary Impression: Atrial fibrillation with RVR Disposition: HOME, SELF-CARE Condition: Stable Departure-Patient Inst. Referrals: CHIKI HERRERA (PCP/Family) Primary Care Physician Patient Instructions: Atrial Fibrillation (DC) Add. Discharge Instructions: Your heart converted to a normal rhythm prior to us having to intervene. Potassium is a little bit low, I have given you some oral potassium pills to help combat this. Have this rechecked with your primary doctor at your next visit. Return to the emergency department for any severe concerns. Follow-up with your primary physician for any nonemergent needs. All discharge instructions reviewed with patient and/or family. Voiced understanding. OLAF ZACARIAS DO May 22, 2022 13:16
[2022-05-22 13:22] LABS: BASOPHILS # (AUTO) 0.1 10^3/uL (0.0-0.1); BASOPHILS % (AUTO) 1 % (0-10); EOSINOPHILS # (AUTO) 0.3 10^3/uL (0.0-0.3); EOSINOPHILS % (AUTO) 4 % (0-10); HEMATOCRIT 41 % (35-52); HEMOGLOBIN 13.2 g/dL (11.5-16.0); LYMPHOCYTES # (AUTO) 1.6 10^3/uL (1.0-4.0); LYMPHOCYTES % (AUTO) 21 % (12-44); MEAN CORPUSCULAR HEMOGLOBIN 28 pg (25-34); MEAN CORPUSCULAR HGB CONC 33 g/dL (32-36); MEAN CORPUSCULAR VOLUME 86 fL (80-99); MEAN PLATELET VOLUME 10.5 fL (9.0-12.2); MONOCYTES # (AUTO) 0.5 10^3/uL (0.0-1.0); MONOCYTES % (AUTO) 6 % (0-12); NEUTROPHILS # (AUTO) 5.2 10^3/uL (1.8-7.8); NEUTROPHILS % (AUTO) 68 % (42-75); PLATELET COUNT 236 10^3/uL (130-400); WHITE BLOOD COUNT 7.7 10^3/uL (4.3-11.0)
[2022-05-22 13:27] LABS: POTASSIUM 3.5 MMOL/L (3.6-5.0)
[2022-05-22 13:28] LABS: CALCIUM 9.4 MG/DL (8.5-10.1)
[2022-05-22 13:33] LABS: CREATININE SERUM 0.85 MG/DL (0.60-1.30)
[2022-05-22] MEDS ORDERED: ETOMIDATE IV SOLN 20 MG/10 ML VIAL IV ONE (13:45)
[2022-05-22] MEDS ORDERED: KCL 20 MEQ TAB (K-DUR) PO ONE (14:45)
[2022-05-22 14:55] VITALS: BP 121/70
== END 2022-05-22 14:58 | disposition home or self-care (01) ==
LOC: EDUNIT# 12:45 → ER 12:47
DX: I48.20 Chronic atrial fibrillation, unspecified (principal); Z79.01 Long term (current) use of anticoagulants; Z88.8 Allergy status to other drugs, medicaments and biological substances
CPT/HCPCS: 36415; 80048; 83735; 84484; 85025; 93005

== ENCOUNTER 2022-07-21 14:15 | Emergency (ER) | payer MEDICARE, OTHER ==
[~2022-07-21] VITALS: Ht 162 cm; Wt 81.6 kg
[2022-07-21 14:41] LABS: BASOPHILS % (AUTO) 0 % (0-10); EOSINOPHILS # (AUTO) 0.2 10^3/uL (0.0-0.3); EOSINOPHILS % (AUTO) 3 % (0-10); HEMATOCRIT 40 % (35-52); HEMOGLOBIN 12.8 g/dL (11.5-16.0); LYMPHOCYTES # (AUTO) 1.7 10^3/uL (1.0-4.0); LYMPHOCYTES % (AUTO) 21 % (12-44); MEAN CORPUSCULAR HEMOGLOBIN 28 pg (25-34); MEAN CORPUSCULAR HGB CONC 32 g/dL (32-36); MEAN CORPUSCULAR VOLUME 86 fL (80-99); MEAN PLATELET VOLUME 10.2 fL (9.0-12.2); MONOCYTES # (AUTO) 0.5 10^3/uL (0.0-1.0); MONOCYTES % (AUTO) 7 % (0-12); NEUTROPHILS # (AUTO) 5.4 10^3/uL (1.8-7.8); NEUTROPHILS % (AUTO) 69 % (42-75); PLATELET COUNT 214 10^3/uL (130-400); WHITE BLOOD COUNT 7.8 10^3/uL (4.3-11.0)
--- NOTE | 2022-07-21 14:41 | Diagnostic Imaging Report ---
INDICATION: Chest pain and palpitations. Frontal chest obtained at 2:25 p.m. and compared to 04/04/2021. FINDINGS: Heart and mediastinal silhouette are normal in appearance. There is mild central vascular congestion. There is no focal infiltrate or pneumothorax or pleural fluid. IMPRESSION: No acute process in the chest. Dictated by: Dictated on workstation # [id number]
--- NOTE | 2022-07-21 14:48 | ED Cardiac General ---
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 PT DENIES CP. Source: patient Exam Limitations: no limitations History of Present Illness Date Seen by Provider: Jul 21, 2022 Time Seen by Provider: 14:30 Initial Comments History obtained from patient. Patient is a 76-year-old female who presents to the emergency department for evaluation of palpitations and rapid heart rate. Patient has a history of paroxysmal A. fib for which she takes carvedilol and Eliquis. She states she has had several episodes of A. fib that it felt similar since 2016. Patient has never required cardioversion although they were setting up for cardioversion at one point and patient states her heart rhythm converted. Patient denies any chest pain or shortness of air. States she is not a smoker. Denies any caffeine or other stimulant use in the recent past. Primary ammonium nitrate neutralizer is Dr. Chan. 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 Allergies and Home Medications Allergies Coded Allergies: Sulfa (Sulfonamide Antibiotics) (Verified Allergy, Unknown, 06/24/15) Patient Home Medication List Home Medication List Reviewed: Yes Acetaminophen (Tylenol) Unknown Strength Capsule, Unknown Dose PO NEEDED, (Reported) Entered as Reported by: ANDER TEIXEIRA on 04/05/21 1337 Apixaban (Eliquis) 5 Mg Tablet, 5 MG PO BID, (Reported) Entered as Reported by: ANDER TEIXEIRA on 04/05/21 1326 Carvedilol (Carvedilol) 25 Mg Tablet, 25 MG PO BID, (Reported) Entered as Reported by: ANDER TEIXEIRA on 04/05/21 1329 Doxazosin Mesylate (Doxazosin Mesylate) 2 Mg Tablet, 2 MG PO DAILY, (Reported) Entered as Reported by: ANDER TEIXEIRA on 04/05/21 1332 Fluticasone/Salmeterol (Advair Hfa 115-21 Mcg Inhaler) 12 Gm Hfa.aer.ad, 12 GM IH DAILY, (Reported) Entered as Reported by: ANDER TEIXEIRA on 04/05/21 1337 Lactobacillus Acidophilus (Probiotic) 1 Each Capsule, 1 EACH PO DAILY, (Reported) Entered as Reported by: ANDER TEIXEIRA on 04/05/21 1337 Losartan Potassium (Losartan Potassium) 50 Mg Tablet, 50 MG PO DAILY, (Reported) Entered as Reported by: MARÍA ROCK on 06/24/15141 Montelukast Sodium (Montelukast Sodium) 10 Mg Tablet, 10 MG PO DAILY, (Reported) Entered as Reported by: ANDER TEIXEIRA on 04/05/21 133 [place]-3 Fatty Acids (Fish Oil) 300 Mg Capsule, 300 MG PO DAILY, (Reported) Entered as Reported by: MARÍA ROCK on 06/24/15141 Potassium Chloride (Potassium Chloride) 20 Meq Tablet.er, 20 MEQ PO DAILY, (Reported) Entered as Reported by: ANDER TEIXEIRA on 04/05/21 133 Tiotropium [place] (Spiriva) 1 Inh Aerp, 1 INH IH DAILY, (Reported) Entered as Reported by: ANDER TEIXEIRA on 04/05/21 133 Discontinued Medications Furosemide (Furosemide) 40 Mg Tablet, 1 TAB PO DAILY, (Reported) Discontinued Reason: No Longer Taking Entered as Reported by: MARÍA ROCK on 06/24/15141 Last Action: Discontinued Hydrochlorothiazide (Hydrochlorothiazide) 12.5 Mg Tablet, 12.5 MG PO DAILY, (Reported) Discontinued Reason: No Longer Taking Entered as Reported by: ANDER TEIXEIRA on 04/05/211332 Last Action: Discontinued Review of Systems Review of Systems Constitutional: no symptoms reported EENTM: No Symptoms Reported Respiratory: No Symptoms Reported Cardiovascular: See HPI, Irregular Heart Rate, Palpitations Gastrointestinal: No Symptoms Reported Genitourinary: No Symptoms Reported Musculoskeletal: no symptoms reported Skin: no symptoms reported Psychiatric/Neurological: No Symptoms Reported Endocrine: No Symptoms Reported Hematologic/Lymphatic: No Symptoms Reported Past Tcrvzbe-Jrhndn-Lgvvlq Hx Patient Social History Tobacco Use?: No Substance use?: No Alcohol Use?: No Pt feels they are or have been: No Immunizations Up To Date PED Vaccines UTD: Yes Influenza Vaccine Up-to-Date: Yes; Up-to-Date First/Initial COVID19 Vaccinat: JUL 2020 Second COVID19 Vaccination Rolo: SEPTEMBER 2020 Third COVID19 Vaccination Date: 2020 Seasonal Allergies Seasonal Allergies: Yes Past Medical History Surgery/Hospitalization HX: AFIB, HTN Surgeries: Yes (CARDIAC CATH--NO INTERVENTION; RIGHT KNEE SURGERY 1981) Adenoidectomy, Orthopedic, Tonsillectomy Respiratory: Yes COPD Cardiac: Yes Atrial Fibrillation, Chronic Edema/Swelling, High Cholesterol, Hypertension 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 0.0oz. 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 Skin: Normal Color, Warm/Dry Progress/Results/Core Measures Results/Orders Lab Results Laboratory Tests Test 07/21/22 14:30 Range/Units White Blood Count 7.8 4.3-11.0 10^3/uL Red Blood Count 4.58 3.80-5.11 10^6/uL Hemoglobin 12.8 11.5-16.0 g/dL Hematocrit 40 35-52 % Mean Corpuscular Volume 86 80-99 fL Mean Corpuscular Hemoglobin 28 25-34 pg Mean Corpuscular Hemoglobin Concent 32 32-36 g/dL Red Cell Distribution Width 13.9 10.0-14.5 % Platelet Count 214 130-400 10^3/uL Mean Platelet Volume 10.2 9.0-12.2 fL Immature Granulocyte % (Auto) 0 % Neutrophils (%) (Auto) 69 42-75 % Lymphocytes (%) (Auto) 21 12-44 % Monocytes (%) (Auto) 7 0-12 % Eosinophils (%) (Auto) 3 0-10 % Basophils (%) (Auto) 0 0-10 % Neutrophils # (Auto) 5.4 1.8-7.8 10^3/uL Lymphocytes # (Auto) 1.7 1.0-4.0 10^3/uL Monocytes # (Auto) 0.5 0.0-1.0 10^3/uL Eosinophils # (Auto) 0.2 0.0-0.3 10^3/uL Basophils # (Auto) 0.0 0.0-0.1 10^3/uL Immature Granulocyte # (Auto) 0.0 0.0-0.1 10^3/uL Prothrombin Time 13.7 12.2-14.7 SEC INR Comment 1.0 0.8-1.4 Activated Partial Thromboplast Time 36 H 24-35 SEC Sodium Level 143 135-145 MMOL/L Potassium Level 3.7 3.6-5.0 MMOL/L Chloride Level 110 H 98-107 MMOL/L Carbon Dioxide Level 28 21-32 MMOL/L Anion Gap 5 5-14 MMOL/L Blood Urea Nitrogen 19 H 7-18 MG/DL Creatinine 0.80 0.60-1.30 MG/DL Estimat Glomerular Filtration Rate 77 BUN/Creatinine Ratio 24 Glucose Level 172 H 70-105 MG/DL Calcium Level 9.2 8.5-10.1 MG/DL Corrected Calcium 9.2 8.5-10.1 MG/DL Magnesium Level 2.1 1.6-2.4 MG/DL Total Bilirubin 0.4 0.1-1.0 MG/DL Aspartate Amino Transf (AST/SGOT) 12 5-34 U/L Alanine Aminotransferase (ALT/SGPT) 14 0-55 U/L Alkaline Phosphatase 82 40-136 U/L Troponin I < 0.028 <0.028 NG/ML Total Protein 6.5 6.4-8.2 GM/DL Albumin 4.0 3.2-4.5 GM/DL My Orders Orders - RAFAEL STUART APRN Ekg Tracing (07/21/22 14:24) Cbc With Automated Diff (07/21/22 14:29) Magnesium (07/21/22 14:29) Chest 1 View, Ap/Pa Only (07/21/22 14:29) Ekg Tracing (07/21/22 14:29) Comprehensive Metabolic Panel (07/21/22 14:29) Protime With Inr (07/21/22 14:29) Partial Thromboplastin Time (07/21/22 14:29) O2 (07/21/22 14:29) Monitor-Rhythm Ecg Trace Only (07/21/22 14:29) Ed Iv/Invasive Line Start (07/21/22 14:29) Troponin I [place] (07/21/22 14:29) Diltiazem Injection (Cardizem Injection) (07/21/22 14:45) Diltiazem Injection (Cardizem Injection) (07/21/22 14:33) Etomidate Injection (Amidate Injection) (07/21/22 14:56) Medications Given in ED Current Medications Medications Dose Ordered Sig/Fili Route Start Time Stop Time Status Last Admin Dose Admin Diltiazem HCl 10 mg ONCE ONCE IVP 07/21/22 14:45 07/21/22 14:46 DC 07/21/22 14:36 10 MG Vital Signs/I&O 07/21/22 07/21/22 07/21/22 14:29 14:36 15:17 Temp 36.9 Pulse 151 147 60 Resp 22 20 B/P (MAP) 110/63 (79) 104/73 118/59 Pulse Ox 97 98 O2 Delivery Room Air Blood Pressure Mean: 83 Progress Progress Note : Progress Note Review of EMR shows patient was seen on May 22 of last year in this emergency department. At that time patient was in A. fib with RVR and as cardioversion was being set up patient spontaneously converted to sinus rhythm. Patient is nontoxic and well-hydrated on exam. Adventitious lung sounds or creased work of breathing noted. Peripheral pulses are strong. Patient is awake alert and oriented x4. Outside of patient's tachycardia her vital signs are reassuring. She does appear to be in atrial fibrillation with rapid ventricular rate. Initial EKG shows a rate of 134. No acute ischemic change appreciated. Orders were placed for CBC, CMP, magnesium, chest x-ray, troponin, and coagulation studies. CBC was unremarkable. CMP notable for relatively mild hyperglycemia. Chest x- ray acutely negative. Troponin is not elevated. No marked findings noted on coagulation studies. Will plan on cardioverting the patient as this is her request that she wishes to be able to go home from the ER. Patient was given a 10 mg bolus of Cardizem with no significant change in her heart rate. Patient signed consent form for synchronized cardioversion. 1500: As the pads were being applied and patient was being set up for the synchronized cardioversion, she converted into a sinus bradycardia with a rate in the 50s. Repeat EKG showed a sinus rhythm with a heart rate in the 80s. We will discharge the patient home. Follow-up with PCP/cardiology. Return precautions for urgent symptomology discussed. Patient verbalized understanding. EKG #1: EKG Time: 14:30 Rate: 134 Rhythm: A Fib/Flutter ECG Impression: Atrial Fibrillation w/RVR EKG #2: EKG Time: 15:20 Rate: 87 Rhythm: Normal Sinus Intervals: Normal ECG Comparisson: Changed ECG Impression: Normal Departure Impression Primary Impression: Atrial fibrillation with RVR Disposition: 01 HOME, SELF-CARE Condition: Stable Departure-Patient Inst. Decision time for Depature: 15:05 Referrals: [facility] (PCP/Family) Primary Care Physician Patient Instructions: Atrial Fibrillation Add. Discharge Instructions: Follow-up with your regular doctor and your ammonium nitrate neutralizer. All discharge instructions reviewed with patient and/or family. Voiced understanding. RAFAEL STUART APRN Jul 21, 2022 14:48
[2022-07-21 14:54] LABS: PROTHROMBIN TIME PATIENT 13.7 SEC (12.2-14.7)
[2022-07-21] MEDS ORDERED: ETOMIDATE IV SOLN 20 MG/10 ML VIAL ONE (14:56)
[2022-07-21 14:59] LABS: BILIRUBIN,TOTAL 0.4 MG/DL (0.1-1.0); CALCIUM 9.2 MG/DL (8.5-10.1); CREATININE SERUM 0.8 MG/DL (0.60-1.30); MAGNESIUM 2.1 MG/DL (1.6-2.4); POTASSIUM 3.7 MMOL/L (3.6-5.0); TOTAL PROTEIN 6.5 GM/DL (6.4-8.2)
[2022-07-21] MEDS ORDERED: ETOMIDATE IV SOLN 20 MG/10 ML VIAL IV ONE (15:00)
[2022-07-21 15:17] VITALS: BP 118/59
== END 2022-07-21 15:17 | disposition home or self-care (01) ==
LOC: EDUNIT# 14:15 → ER 14:18
DX: I48.0 Paroxysmal atrial fibrillation (principal); Z79.01 Long term (current) use of anticoagulants; Z79.899 Other long term (current) drug therapy
CPT/HCPCS: 36415; 71045; 80053; 83735; 84484; 85025; 85610; 85730; 93005; 93041

== ENCOUNTER 2022-08-22 13:38 | Emergency (ER) | payer MEDICARE, OTHER ==
[~2022-08-22] VITALS: Ht 162 cm; Wt 84.0 kg
--- NOTE | 2022-08-22 13:51 | ED Cardiac General ---
History of Present Illness General Chief Complaint: Cardiac/General Problems Stated Complaint: AFIB Source: patient Exam Limitations: no limitations History of Present Illness Date Seen by Provider: Aug 22, 2022 Time Seen by Provider: 13:40 Initial Comments 76-year-old lady with a history of intermittent atrial fibrillation presents to the emergency room with a chief complaint of feeling like she is in A-fib going rapidly. 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 Patient denies any chest pain, pressure, shortness of breath or nausea. No recent illnesses. No cough or fever. She is on carvedilol, losartan for blood pressure control. She is anticoagulated on Eliquis. She states this is happened for 5 times in the past. She has pretty much converted on her own previously. She does endorse increased stress over the last several months related to medical problems with her spouse. No excessive caffeine use. No stimulants. She does not feel lightheaded or dizzy. She does not have any excessive swelling in her legs. No recent black or bloody stools, dysuria urgency or frequency. Timing/Duration: 1/2 hour Severity: moderate Activities at Onset: none Prior CP/Workup: other (h/o intermittent afib) Associated Systoms: Other (palpitations) Allergies and Home Medications Allergies Coded Allergies: Sulfa (Sulfonamide Antibiotics) (Verified Allergy, Unknown, 06/24/15) Patient Home Medication List Home Medication List Reviewed: Yes Acetaminophen (Tylenol) Unknown Strength Capsule, Unknown Dose PO NEEDED, (Reported) Entered as Reported by: ANDER TEXIEIRA on 04/05/21 1337 Apixaban (Eliquis) 5 Mg Tablet, 5 MG PO BID, (Reported) Entered as Reported by: ANDER TEIXEIRA on 04/05/21 1326 Carvedilol (Carvedilol) 25 Mg Tablet, 25 MG PO BID, (Reported) Entered as Reported by: ANDER TEIXEIRA on 04/05/21 1329 Doxazosin Mesylate (Doxazosin Mesylate) 2 Mg Tablet, 2 MG PO DAILY, (Reported) Entered as Reported by: ANDER TEIXEIRA on 04/05/21 1332 Fluticasone/Salmeterol (Advair Hfa 115-21 Mcg Inhaler) 12 Gm Hfa.aer.ad, 12 GM IH DAILY, (Reported) Entered as Reported by: ANDER TEIXIERA on 04/05/21 133 Lactobacillus Acidophilus (Probiotic) 1 Each Capsule, 1 EACH PO DAILY, (Reported) Entered as Reported by: ANDER TEIXEIRA on 04/05/21 133 Losartan Potassium (Losartan Potassium) 50 Mg Tablet, 50 MG PO DAILY, (Reported) Entered as Reported by: MARÍA ROCK on 06/24/15 014 Montelukast Sodium (Montelukast Sodium) 10 Mg Tablet, 10 MG PO DAILY, (Reported) Entered as Reported by: ANDER TEIXEIRA on 04/05/21 133 [place]-3 Fatty Acids (Fish Oil) 300 Mg Capsule, 300 MG PO DAILY, (Reported) Entered as Reported by: MARÍA ROCK on 06/24/15 014 Potassium Chloride (Potassium Chloride) 20 Meq Tablet.er, 20 MEQ PO DAILY, (Reported) Entered as Reported by: ANDER TEIXEIRA on 04/05/21 133 Tiotropium [place] (Spiriva) 1 Inh Aerp, 1 INH IH DAILY, (Reported) Entered as Reported by: ANDER TEIXEIRA on 04/05/21 133 Review of Systems Review of Systems Constitutional: see HPI EENTM: No Symptoms Reported Respiratory: No Symptoms Reported Cardiovascular: Palpitations Gastrointestinal: No Symptoms Reported Genitourinary: No Symptoms Reported Musculoskeletal: no symptoms reported Skin: no symptoms reported Psychiatric/Neurological: No Symptoms Reported All Other Systems Reviewed Negative Unless Noted: Yes Past Ryrspwr-Mdyjuz-Yiqvwz Hx Immunizations Up To Date PED Vaccines UTD: Yes First/Initial COVID19 Vaccinat: JUL 2020 Second COVID19 Vaccination Rolo: SEPTEMBER 2020 Third COVID19 Vaccination Date: 2020 Seasonal Allergies Seasonal Allergies: Yes Past Medical History Surgery/Hospitalization HX: AFIB, HTN Surgeries: Yes (CARDIAC CATH--NO INTERVENTION; RIGHT KNEE SURGERY 1981) Adenoidectomy, Orthopedic, Tonsillectomy Respiratory: Yes COPD Cardiac: Yes Atrial Fibrillation, Chronic Edema/Swelling, High Cholesterol, Hypertension 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 0.0oz. 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 II-XII Norm as Tested Skin: Normal Color, Warm/Dry Progress/Results/Core Measures Results/Orders Lab Results Laboratory Tests Test 08/22/22 13:53 Range/Units White Blood Count 7.5 4.3-11.0 10^3/uL Red Blood Count 4.44 3.80-5.11 10^6/uL Hemoglobin 12.5 11.5-16.0 g/dL Hematocrit 39 35-52 % Mean Corpuscular Volume 87 80-99 fL Mean Corpuscular Hemoglobin 28 25-34 pg Mean Corpuscular Hemoglobin Concent 33 32-36 g/dL Red Cell Distribution Width 13.9 10.0-14.5 % Platelet Count 209 130-400 10^3/uL Mean Platelet Volume 10.2 9.0-12.2 fL Immature Granulocyte % (Auto) 0 % Neutrophils (%) (Auto) 65 42-75 % Lymphocytes (%) (Auto) 25 12-44 % Monocytes (%) (Auto) 6 0-12 % Eosinophils (%) (Auto) 3 0-10 % Basophils (%) (Auto) 1 0-10 % Neutrophils # (Auto) 4.9 1.8-7.8 10^3/uL Lymphocytes # (Auto) 1.9 1.0-4.0 10^3/uL Monocytes # (Auto) 0.5 0.0-1.0 10^3/uL Eosinophils # (Auto) 0.2 0.0-0.3 10^3/uL Basophils # (Auto) 0.0 0.0-0.1 10^3/uL Immature Granulocyte # (Auto) 0.0 0.0-0.1 10^3/uL Sodium Level 143 135-145 MMOL/L Potassium Level 3.6 3.6-5.0 MMOL/L Chloride Level 109 H 98-107 MMOL/L Carbon Dioxide Level 24 21-32 MMOL/L Anion Gap 10 5-14 MMOL/L Blood Urea Nitrogen 15 7-18 MG/DL Creatinine 0.76 0.60-1.30 MG/DL Estimat Glomerular Filtration Rate 82 BUN/Creatinine Ratio 20 Glucose Level 133 H 70-105 MG/DL Calcium Level 8.9 8.5-10.1 MG/DL Magnesium Level 2.1 1.6-2.4 MG/DL My Orders Orders - JEREMÍAS BALES MD Ed Iv/Invasive Line Start (08/22/22 13:52) Cbc With Automated Diff (08/22/22 13:52) Basic Metabolic Panel (08/22/22 13:52) Magnesium (08/22/22 13:52) Ekg Tracing (08/22/22 13:52) Ns Iv 1000 Ml (Sodium Chloride 0.9%) (08/22/22 14:05) Diltiazem Injection (Cardizem Injection) (08/22/22 14:05) Vital Signs/I&O 08/22/22 08/22/22 13:41 14:31 Temp 36.5 Pulse 134 126 Resp 15 B/P (MAP) 133/102 (112) Pulse Ox 96 O2 Delivery Room Air Progress Progress Note #1: Time: 14:55 Progress Note Patient seen and evaluated by me, evaluation today includes physical exam, CBC, basic metabolic panel and magnesium level. EKG. Based on history and physical exam differential diagnosis includes electrolyte imbalance, A-fib RVR, dehydration causing the A-fib. Patient is treated with a liter of IV fluids as well as a bolus of 20 mg of Cardizem. The 20 mg of Cardizem brought her rate down into the 70s. She has been bouncing between 70 and 103. Heart rate previously was 150. She feels much better after the Cardizem. Her labs are normal, normal CBC, normal chemistry and normal mag. She is currently completing her liter bolus. Now that she is rate controlled I have advised her because of her anticoagulation that she can go home. 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 She believes she has an appointment with him in the next 2 to 3 weeks. No clinical or objective findings to warrant inpatient hospitalization at this time. She is about an hour out of her Cardizem bolus. Still rate controlled. I advised her to try and rest is much as possible, she may cardiovert on her own. Her blood pressure has been great, no indications f or electrical cardioversion. She is comfortable with the plan of care, all questions are sought and answered. Patient is stable for discharge Progress Note #2: Time: 15:16 Progress Note As patient's nurse was getting her ready to go, she converted to NSR in the 50's. BP is great. Patient is more comfortable now that she is out of Afib. Initial ECG Impression Date: Aug 22, 2022 Initial ECG Impression Time: 14:00 Initial ECG Rate: 137 Initial ECG Rhythm: A Fib/Flutter Initial ECG Impression: Atrial Fibrillation w/RVR Departure Impression Primary Impression: Atrial fibrillation with RVR Disposition: 01 HOME, SELF-CARE Condition: Improved Departure-Patient Inst. Decision time for Depature: 15:06 Referrals: [facility] [place] (PCP/Family) Primary Care Physician DHIRAJ CHAN MD [facility] Patient Instructions: Atrial Fibrillation (DC) Add. Discharge Instructions: Drink plenty fluids to stay well-hydrated. Try and get adequate rest and do what you can to decrease your level of stress. Please keep your follow-up appointment with Dr. Chan. Return to the emergency room for any recurrent or worsening symptoms or new emergent complaints. Copy Copies To 1: DHIRAJ CHAN MD [facility] CCDS Copies To 2: SHANTA HICKS KATHRYN M MD Aug 22, 2022 13:51
[2022-08-22 14:01] LABS: BASOPHILS % (AUTO) 1 % (0-10); EOSINOPHILS # (AUTO) 0.2 10^3/uL (0.0-0.3); EOSINOPHILS % (AUTO) 3 % (0-10); HEMATOCRIT 39 % (35-52); HEMOGLOBIN 12.5 g/dL (11.5-16.0); LYMPHOCYTES # (AUTO) 1.9 10^3/uL (1.0-4.0); LYMPHOCYTES % (AUTO) 25 % (12-44); MEAN CORPUSCULAR HEMOGLOBIN 28 pg (25-34); MEAN CORPUSCULAR HGB CONC 33 g/dL (32-36); MEAN CORPUSCULAR VOLUME 87 fL (80-99); MEAN PLATELET VOLUME 10.2 fL (9.0-12.2); MONOCYTES # (AUTO) 0.5 10^3/uL (0.0-1.0); MONOCYTES % (AUTO) 6 % (0-12); NEUTROPHILS # (AUTO) 4.9 10^3/uL (1.8-7.8); NEUTROPHILS % (AUTO) 65 % (42-75); PLATELET COUNT 209 10^3/uL (130-400); WHITE BLOOD COUNT 7.5 10^3/uL (4.3-11.0)
[2022-08-22] MEDS ORDERED: NS IV 1000 ML 1,000 ML IV STA (14:05)
[2022-08-22 14:11] LABS: POTASSIUM 3.6 MMOL/L (3.6-5.0)
[2022-08-22 14:12] LABS: CALCIUM 8.9 MG/DL (8.5-10.1)
[2022-08-22 14:17] LABS: CREATININE SERUM 0.76 MG/DL (0.60-1.30)
[2022-08-22 14:19] LABS: MAGNESIUM 2.1 MG/DL (1.6-2.4)
[2022-08-22 21:59] VITALS: BP 132/68
== END 2022-08-22 15:30 | disposition home or self-care (01) ==
LOC: EDUNIT# 13:38 → ER 13:39
DX: I48.91 Unspecified atrial fibrillation (principal); I10 Essential (primary) hypertension; Z79.01 Long term (current) use of anticoagulants; Z79.899 Other long term (current) drug therapy
CPT/HCPCS: 36415; 80048; 83735; 85025; 93005

== ENCOUNTER 2022-08-31 13:15 | Observation (INO) | payer MEDICARE, OTHER ==
[~2022-08-31] VITALS: Ht 162.5 cm; Wt 91.4 kg
[2022-08-31] MEDS ORDERED: dilTIAZem DRIP PRE-MIX 125 ML IV STA (13:40)
[2022-08-31] MEDS ORDERED: NS IV 500 ML 500 ML IV ONE (13:45)
[2022-08-31 13:47] LABS: BASOPHILS % (AUTO) 0 % (0-10); EOSINOPHILS # (AUTO) 0.2 10^3/uL (0.0-0.3); EOSINOPHILS % (AUTO) 2 % (0-10); HEMATOCRIT 40 % (35-52); HEMOGLOBIN 13.3 g/dL (11.5-16.0); LYMPHOCYTES # (AUTO) 2.4 10^3/uL (1.0-4.0); LYMPHOCYTES % (AUTO) 23 % (12-44); MEAN CORPUSCULAR HEMOGLOBIN 28 pg (25-34); MEAN CORPUSCULAR HGB CONC 33 g/dL (32-36); MEAN CORPUSCULAR VOLUME 85 fL (80-99); MEAN PLATELET VOLUME 10.5 fL (9.0-12.2); MONOCYTES # (AUTO) 0.7 10^3/uL (0.0-1.0); MONOCYTES % (AUTO) 7 % (0-12); NEUTROPHILS # (AUTO) 7.3 10^3/uL (1.8-7.8); NEUTROPHILS % (AUTO) 68 % (42-75); PLATELET COUNT 247 10^3/uL (130-400); WHITE BLOOD COUNT 10.7 10^3/uL (4.3-11.0)
[2022-08-31 13:53] LABS: CALCIUM 8.8 MG/DL (8.5-10.1)
[2022-08-31 13:57] LABS: CREATININE SERUM 0.78 MG/DL (0.60-1.30)
[2022-08-31 13:59] LABS: MAGNESIUM 2.2 MG/DL (1.6-2.4)
--- NOTE | 2022-08-31 14:08 | ED Cardiac General ---
History of Present Illness General Chief Complaint: Cardiac/General Problems Stated Complaint: AFIB Nursing Triage Note: PRESENTS WITH C/O "AFIB" STATES SHE FEEL ABIOLA HEART RATE IS FAST AND IRREGULAR WITH ASSOCIATED SOB. DENIES CHEST PAIN. AMB TO ROOM 5. BENJY ON ELIQUIS CURRENTLY FOR HX OF AFIB. 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 She reported noticing it about 15 minutes prior to arrival. She had been visiting her at the retirement and was feeling fine at that time. She reports increased stress in her life recently. She feels relatively well other than noticing the arrhythmia. She does have chronic lower extremity edema. She has a follow-up appointment with Dr. Chan coming up in September. This is the patient's fourth visit to the emergency room with A-fib RVR since May. The first 2 visits resulted in chemical cardioversion on Cardizem drip. She was discharged from the third visit with rate controlled atrial fibrillation after being administered Cardizem by IV route. She has never been started on oral Cardizem and maintains carvedilol as her only rate control medication. Patient remains on Eliquis and reports strict compliance. Allergies and Home Medications Allergies Coded Allergies: Sulfa (Sulfonamide Antibiotics) (Verified Allergy, Unknown, 06/24/15) Patient Home Medication List Home Medication List Reviewed: Yes Acetaminophen (Tylenol Extra Strength) 500 Mg Tablet, 500-1,000 MG PO Q8H PRN for PAIN-MILD (1-4), (Reported) Entered as Reported by: SIGRID OCAMPO on 09/01/22 1015 Last Action: Reviewed Apixaban (Eliquis) 5 Mg Tablet, 5 MG PO BID WITH MEALS, (Reported) Entered as Reported by: ANDER TEIXEIRA on 04/05/21 1326 Last Action: Reviewed Ascorbate Calcium (Vitamin C) 500 Mg Tablet, 500 MG PO DAILY, (Reported) Entered as Reported by: SIGRID OCAMPO on 09/01/22 1015 Last Action: Reviewed Cholecalciferol (Vitamin D3) (Vitamin D3) 50 Mcg (2000 Unit) Capsule, 50 MCG PO 1800, (Reported) Entered as Reported by: SIGRID OCAMPO on 09/01/22 1015 Last Action: Reviewed Cyanocobalamin (Vitamin B-12) (Vitamin B-12) 500 Mcg Tablet, 500 MCG PO 1800, (Reported) Entered as Reported by: SIGRID OCAMPO on 09/01/22 1015 Last Action: Reviewed Doxazosin Mesylate (Doxazosin Mesylate) 2 Mg Tablet, 2 MG PO 1800, (Reported) Entered as Reported by: ANDER TEIXEIRA on 04/05/21 1332 Last Action: Reviewed Dronedarone HCl (Multaq) 400 Mg Tablet, 400 MG PO BID Prescribed by: CARMEN HERRING on 09/01/22 1234 Fluticasone Propionate (Fluticasone Propionate) 50 Mcg/Actuation [place].susp, 1 SPRAY NSEACH BID PRN for CONGESTION, (Reported) Entered as Reported by: CHRISTINA DOBSON on 08/31/22 184 Last Action: Reviewed Levocetirizine Dihydrochloride (Levocetirizine Dihydrochloride) 5 Mg Tablet, 5 MG PO 1800, (Reported) Entered as Reported by: CHRISTINA DOBSON on 08/31/221847 Last Action: Reviewed Losartan Potassium (Losartan Potassium) 50 Mg Tablet, 50 MG PO DAILY, (Reported) Entered as Reported by: MARÍA ROCK on 06/24/15 0142 Last Action: Reviewed Multivitamin (Multivitamin) 1 Each Tablet, 1 EACH PO DAILY, (Reported) Entered as Reported by: SIGRID OCAMPO on 09/01/22 1015 Last Action: Reviewed Discontinued Medications Acetaminophen (Tylenol) Unknown Strength Capsule, Unknown Dose PO NEEDED, (Reported) Discontinued Reason: Duplicate Order Entered as Reported by: ANDER TEIXEIRA on 04/05/21 1337 Last Action: Discontinued Carvedilol (Carvedilol) 25 Mg Tablet, 25 MG PO BID, (Reported) Discontinued Reason: Duplicate Order Entered as Reported by: ANDER TEIXEIRA on 04/05/21 1329 Last Action: Discontinued Carvedilol (Carvedilol) 12.5 Mg Tablet, 25 MG PO BID, (Reported) Entered as Reported by: SIGRID OCAMPO on 09/01/22 1015 Last Action: Reviewed Fluticasone/Salmeterol (Advair Hfa 115-21 Mcg Inhaler) 12 Gm Hfa.aer.ad, 12 GM IH DAILY, (Reported) Discontinued Reason: No Longer Taking Entered as Reported by: ANDER TEIXEIRA on 04/05/211336 Last Action: Discontinued Lactobacillus Acidophilus (Probiotic) 1 Each Capsule, 1 EACH PO DAILY, (Reported) Discontinued Reason: No Longer Taking Entered as Reported by: ANDER TEIXEIRA on 04/05/211336 Last Action: Discontinued Montelukast Sodium (Montelukast Sodium) 10 Mg Tablet, 10 MG PO DAILY, (Reported) Discontinued Reason: No Longer Taking Entered as Reported by: ANDER TEIXEIRA on 04/05/211330 Last Action: Discontinued [place]-3 Fatty Acids (Fish Oil) 300 Mg Capsule, 300 MG PO DAILY, (Reported) Discontinued Reason: No Longer Taking Entered as Reported by: MARÍA ROCK on 06/24/15 014 Last Action: Discontinued Potassium Chloride (Potassium Chloride) 20 Meq Tablet.er, 20 MEQ PO DAILY, (Reported) Discontinued Reason: Duplicate Order Entered as Reported by: ANDER TEIXEIRA on 04/05/211329 Last Action: Discontinued Tiotropium [place] (Spiriva) 1 Inh Aerp, 1 INH IH DAILY, (Reported) Discontinued Reason: No Longer Taking Entered as Reported by: ANDER TEIXEIRA on 04/05/211333 Last Action: Discontinued Review of Systems Review of Systems Constitutional: no symptoms reported EENTM: No Symptoms Reported Respiratory: Shortness of Air Cardiovascular: Edema Gastrointestinal: No Symptoms Reported Genitourinary: No Symptoms Reported Musculoskeletal: no symptoms reported Skin: no symptoms reported Psychiatric/Neurological: No Symptoms Reported Endocrine: No Symptoms Reported Hematologic/Lymphatic: No Symptoms Reported Past Wztnhcb-Blvtdh-Tdbvrv Hx Patient Social History Tobacco Use?: No Use of E-Cig and/or Vaping dev: No Substance use?: No Alcohol Use?: No Pt feels they are or have been: No Immunizations Up To Date PED Vaccines UTD: Yes Influenza Vaccine Up-to-Date: Yes; Up-to-Date First/Initial COVID19 Vaccinat: JUL 2020 Second COVID19 Vaccination Rolo: SEPTEMBER 2020 Third COVID19 Vaccination Date: 2020 Seasonal Allergies Seasonal Allergies: Yes Past Medical History Surgery/Hospitalization HX: AFIB, HTN, COPD RIGHT KNEE REPLACEMENT, TONSILS Surgeries: Yes (CARDIAC CATH--NO INTERVENTION; RIGHT KNEE SURGERY 1981) Adenoidectomy, Orthopedic, Tonsillectomy Respiratory: Yes COPD Cardiac: Yes Atrial Fibrillation, Chronic Edema/Swelling, High Cholesterol, Hypertension 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 0.0oz. 103.070291bx; 34.00 BMI Method:Stated General Appearance: No Apparent Distress, WD/WN HEENT: PERRL/EOMI, Normal ENT Inspection Neck: Normal Inspection; No JVD Respiratory: Lungs Clear, Normal Breath Sounds, No Accessory Muscle Use Cardiovascular: No Murmur, Irregularly Irregular, Tachycardia, Other (Chronic pitting lower extremity edema) Gastrointestinal: Non Tender, Soft Extremity: Non Tender, Pedal Edema, Swelling Neurologic/Psychiatric: Alert, Oriented x3, No Motor/Sensory Deficits, Normal Mood/Affect Skin: Normal Color, Warm/Dry Progress/Results/Core Measures Results/Orders Lab Results Laboratory Tests Test 08/31/22 13:30 Range/Units White Blood Count 10.7 4.3-11.0 10^3/uL Red Blood Count 4.72 3.80-5.11 10^6/uL Hemoglobin 13.3 11.5-16.0 g/dL Hematocrit 40 35-52 % Mean Corpuscular Volume 85 80-99 fL Mean Corpuscular Hemoglobin 28 25-34 pg Mean Corpuscular Hemoglobin Concent 33 32-36 g/dL Red Cell Distribution Width 14.0 10.0-14.5 % Platelet Count 247 130-400 10^3/uL Mean Platelet Volume 10.5 9.0-12.2 fL Immature Granulocyte % (Auto) 0 % Neutrophils (%) (Auto) 68 42-75 % Lymphocytes (%) (Auto) 23 12-44 % Monocytes (%) (Auto) 7 0-12 % Eosinophils (%) (Auto) 2 0-10 % Basophils (%) (Auto) 0 0-10 % Neutrophils # (Auto) 7.3 1.8-7.8 10^3/uL Lymphocytes # (Auto) 2.4 1.0-4.0 10^3/uL Monocytes # (Auto) 0.7 0.0-1.0 10^3/uL Eosinophils # (Auto) 0.2 0.0-0.3 10^3/uL Basophils # (Auto) 0.0 0.0-0.1 10^3/uL Immature Granulocyte # (Auto) 0.0 0.0-0.1 10^3/uL Sodium Level 142 135-145 MMOL/L Potassium Level 4.0 3.6-5.0 MMOL/L Chloride Level 107 98-107 MMOL/L Carbon Dioxide Level 23 21-32 MMOL/L Anion Gap 12 5-14 MMOL/L Blood Urea Nitrogen 15 7-18 MG/DL Creatinine 0.78 0.60-1.30 MG/DL Estimat Glomerular Filtration Rate 79 BUN/Creatinine Ratio 19 Glucose Level 118 H 70-105 MG/DL Calcium Level 8.8 8.5-10.1 MG/DL Magnesium Level 2.2 1.6-2.4 MG/DL TSH [place] Testing 2.12 0.35-4.94 UIU/ML My Orders Orders - JOSEPHINE LANCASTER MD Ekg Tracing (08/31/22 13:20) Monitor-Rhythm Ecg Trace Only (08/31/22 13:20) Diltiazem Drip Pre-Mix (Cardizem Drip Pr (08/31/22 13:40) Ns Iv 500 Ml (Sodium Chloride 0.9%) (08/31/22 13:45) Basic Metabolic Panel (08/31/22 13:42) Cbc With Automated Diff (08/31/22 13:42) Magnesium (08/31/22 13:42) Thyroid Analyzer (08/31/22 13:42) Chest 1 View, Ap/Pa Only (08/31/22 14:25) Amiodarone For Bolus (Cordarone Bolus) (08/31/22 17:00) Amiodarone Injection (Cordarone Injectio (08/31/22 17:00) Diltiazem Cd 24 Hr Capsule (Cardizem Cd (08/31/22 17:00) Ed Admission (Communication) (08/31/22 17:22) Ondansetron Injection (Zofran Injectio (08/31/22 17:45) Medications Given in ED Vital Signs/I&O 08/31/22 08/31/22 08/31/22 08/31/22 13:18 13:18 14:15 17:28 Temp 36.5 Pulse 142 131 46 Resp 18 B/P (MAP) 114/84 (94) 150/86 91/53 Pulse Ox 97 O2 Delivery Room Air Room Air 08/31/22 18:04 Pulse 42 Resp 13 B/P (MAP) 119/58 Pulse Ox 96 O2 Delivery Room Air Blood Pressure Mean: 94 Progress Progress Note #1: Time: 15:39 Progress Note Patient has exhibited atrial fibrillation with RVR in the ER. Cardizem drip was initiated at 10 mg/h. Bolus was not administered due to marginal blood pressures on this visit. She received a 500 mL normal saline bolus. Cardizem drip is currently running at 12.5 mg/h. She had 1 significant hypotensive episode but rebounded well. Blood pressure stable at this time. We will attempt try titrating up to 15 mg/h. If there is not a satisfactory result, cardiology will be consulted. Progress Note #2: Time: 16:01 Progress Note Patient has been gradually titrated up on her Cardizem drip. She is now running at 15 mg/h. She has been alternating between sinus bradycardia with a heart rate in the 40s and 50s and atrial fibrillation over the past 15 minutes. Progress Note #3: Time: 16:57 Progress Note Patient did eventually convert to sinus rhythm on Cardizem at 15 mg/h. I discussed the situation with Dr. Lagunas who is taking call for Dr. Chan. Because the patient has had recurrent problems with RVR with 4 ER visits since May, he is recommending a strategy change with her medications. He recommends stopping carvedilol and starting amiodarone as well as oral Cardizem. He recommended starting amiodarone with a 150 mg bolus followed by a drip. He recommended Cardizem CD1 120 mg orally now and daily. Her other medications including Eliquis, losartan, and doxazosin may be continued. Dr. Lagunas prefers to make these significant medication changes while observing her in the hospit al. Patient is reluctant to stay but eventually agreed to admission at the encouragement of her family. Her is currently admitted at a retirement and experiences significant behavior disturbances during the day. He does much better which she is present. This is her motivation for wanting to be out of the hospital. We discussed CODE STATUS, and she would like to remain full code. The amiodarone bolus and drip will be initiated in the ER. The Cardizem drip will be discontinued and the oral Cardizem will be given in the ER. Initial ECG Impression Date: Aug 31, 2022 Initial ECG Impression Time: 13:22 Initial ECG Rate: 147 Initial ECG Rhythm: A Fib/Flutter Initial ECG Impression: Atrial Fibrillation w/RVR Comment Atrial fibrillation with RVR. No ST elevation. ST depression noted. No axis deviation. Diagnostic Imaging Diagonstic Imaging: Xray Plain Films/CT/US/NM/MRI: chest Comments Chest x-ray report reviewed. See report below: NAME: SUSANNE SUMNER [facility] REC#: [id number] PT STATUS: REG ER : 1945 PHYSICIAN: JOSEPHINE LANCASTER MD ADMIT DATE: 08/31/22/ER Signed Date of Exam:08/31/22 CHEST 1 VIEW, AP/PA ONLY CHEST 1 VIEW, AP/PA ONLY Indication: Shortness of air in nature fibrillation Comparison: 07/21/2022 Findings: No focal airspace disease in the visualized lungs. No pleural effusion or pneumothorax. Normal cardiomediastinal silhouette. Impression: 1. No acute cardiopulmonary process by portable radiography. Dictated by: Dictated on workstation # [id number] Dict: 08/31/22 1505 Trans: 08/31/22 1506 [facility] [id number] Interpreted by: ALIE ALMAGUER MD Electronically signed by: ALIE ALMAGUER MD 08/31/22 1506 Departure Communication (Admissions) Time/Spoke to Admitting Phy: 17:20 Dr. Herring Time/Spoke to Consulting Phy: 16:05 Dr. Lagunas Impression Primary Impression: Atrial fibrillation with RVR Additional Impression: Paroxysmal atrial fibrillation Disposition: ADMITTED INPATIENT Condition: Improved Admissions Decision to Admit Reason: Admit from ER (General) Decision to Admit/Date: Aug 31, 2022 Time/Decision to Admit Time: 16:05 Departure-Patient Inst. Referrals: [facility] (PCP/Family) Primary Care Physician Scripts Dronedarone HCl (Multaq) 400 Mg Tablet 400 MG PO BID, #60 TAB Prov: HERRINGDARIUSZKen MARTINEZ 09/01/22 Copy Copies To 1: DHIRAJ CHAN MD FACP FAC CCDS Copies To 2: [facility]/JOSEPHINE DUDLEY MD Aug 31, 2022 14:08
[2022-08-31 14:20] LABS: TSH (THYROID ANALYZER) 2.12 UIU/ML (0.35-4.94)
--- NOTE | 2022-08-31 15:07 | Diagnostic Imaging Report ---
CHEST 1 VIEW, AP/PA ONLY Indication: Shortness of air in nature fibrillation Comparison: 07/21/2022 Findings: No focal airspace disease in the visualized lungs. No pleural effusion or pneumothorax. Normal cardiomediastinal silhouette. Impression: 1. No acute cardiopulmonary process by portable radiography. Dictated by: Dictated on workstation # [id number]
[2022-08-31] MEDS ORDERED: AMIODARONE FOR BOLUS 150 MG in NS (IVPB) 100 ML IV ONE (17:00)
[2022-08-31] MEDS ORDERED: AMIODARONE INJECTION 450 MG in NORMAL SALINE 250 ML IV SCH ×2 (17:00→18:15)
[2022-08-31] MEDS ORDERED: dilTIAZem120 MG (CARDIZEM CD) CAP PO ONE (17:00)
[2022-08-31] MEDS ORDERED: ONDANSETRON 4 MG/2 ML (SDV) Z0FRAN IVP ONE (17:45)
[2022-08-31] MEDS ORDERED: BISACODYL 10 MG SUPP (DULCOLAX) PR PRN (18:15)
[2022-08-31] MEDS ORDERED: ACETAMINOPHEN 325 MG TABLET PO PRN (18:15)
[2022-08-31] MEDS ORDERED: ONDANSETRON 4 MG (ZOFRAN) ORAL DISSOLVE TAB PO PRN (18:15)
[2022-08-31] MEDS ORDERED: MILK OF MAGNESIA 400 MG/5 ML 30 ML UDC PO PRN (18:15)
[2022-08-31] MEDS ORDERED: diphenhydrAMINE 50 MG/ML INJ (BENADRYL) IVP PRN (18:15)
[2022-08-31] MEDS ORDERED: LACTULOSE SYRUP 10GM/15ML (ENULOSE) 30ML UDC PO PRN (18:15)
[2022-08-31] MEDS ORDERED: ANTACID SUSP 30 ML UDC (MYLANTA) PO PRN (18:15)
[2022-08-31] MEDS ORDERED: diphenhydrAMINE 25 MG TAB (BENADRYL) PO PRN (18:15)
[2022-08-31] MEDS ORDERED: HYDROmorphone 2 MG/ML VIAL (DILAUDID) IV PRN (18:15)
[2022-08-31] MEDS ORDERED: MELATONIN 3 MG TABLET PO PRN (18:15)
[2022-08-31] MEDS ORDERED: CALCIUM CARBONATE 500 MG (TUMS) TAB.CHEW PO PRN (18:15)
[2022-08-31] MEDS ORDERED: ONDANSETRON 4 MG/2 ML (SDV) Z0FRAN IV PRN (18:15)
[2022-08-31] MEDS ORDERED: polyethylene glycoL POWDER 17 GM (MIRALAX) PACK PO PRN (18:15)
[2022-08-31] MEDS ORDERED: NS IV 500 ML 500 ML IV PRN (18:15)
[2022-08-31] MEDS ORDERED: FLUT16SP22 NSEACH (18:48)
[2022-08-31] MEDS ORDERED: LEVO5TAB12 PO (18:48)
[2022-08-31 19:21] VITALS: BP 103/79
[2022-08-31] MEDS ORDERED: RT-ALBUTEROL SULF 2.5 MG/3 ML PRE-MIX VIAL INH PRN (19:45)
[2022-08-31] MEDS: APIXABAN 5 MG (ELIQUIS) TABLET PO SCH (20:40)
[2022-08-31] MEDS: SENNOSIDES 8.6 MG (SENOKOT) TAB PO SCH (20:41)
[2022-08-31] MEDS: DOCUSATE SODIUM 100 MG (COLACE) CAP PO SCH (20:41)
[2022-08-31] MEDS ORDERED: doxAzosin 2 MG (CARDURA) TAB PO SCH (21:00)
--- NOTE | 2022-08-31 21:01 | Tele-ICU Consult ---
History of Present Illness History of Present Illness Date Seen by Provider: Aug 31, 2022 Time Seen by Provider: 20:51 History of Present Illness eICU admit note 76 yo F comes to ED with a fib witih RVR 15 min prior to arrival. Has multiple similar episodes of a fib in past Pt has been on Eliquis, has been on Carvedilol, not on po Cardizem, In 2016 echo showed LVER 55-60%, no mention of atrial enlargement. While on IV amiodarone became bradycardic with rate as low as 37, Amiodarone stopped, Pt now has sinus with rate in 50's which is her baseline. Loaded with IV amiodarone, now on IV drip renal and liver function ok on labs, Other PMH HTN, COPD, HDL, chronic leg edema, MARKOS, obesity PFT's in 2019 showed mild obst pattern Allergies and Home Medications Allergies Coded Allergies: Sulfa (Sulfonamide Antibiotics) (Verified Allergy, Unknown, 06/24/15) Home Medications Acetaminophen Unknown Strength Capsule, Unknown Dose PO NEEDED, (Reported) Apixaban 5 Mg Tablet, 5 MG PO BID, (Reported) Carvedilol 25 Mg Tablet, 25 MG PO BID, (Reported) Doxazosin Mesylate 2 Mg Tablet, 2 MG PO DAILY, (Reported) Fluticasone Propionate 50 Mcg/Actuation [place].susp, 50 MCG INH DAILY, (Reported) Levocetirizine Dihydrochloride 5 Mg Tablet, 5 MG PO HS, (Reported) Losartan Potassium 50 Mg Tablet, 50 MG PO DAILY, (Reported) Past Medical/Social/Family Hx Patient Social History Tobacco Use?: No Smoking Status: Former Smoker Use of E-Cig and/or Vaping dev: No Substance use?: No Alcohol Use?: No Pt stated abuse/neglect: No Immunizations Up To Date Influenza Vaccine Up-to-Date: Yes; Up-to-Date First/Initial COVID19 Vaccinat: JUL 2020 Second COVID19 Vaccination Rolo: SEPTEMBER 2020 Tetanus Booster (TDap): Unknown TB Skin Test: None Current Status status: No Advance Directives: No Communicates: Verbally Primary Language: Faroese Preferred Spoken Language: Faroese Is interpretation needed?: No Sensory deficits: Vision impairment Implanted or Applied Medical D: None Review of Systems Constitutional: see HPI EENTM: see HPI Respiratory: see HPI Cardiovascular: see HPI Gastrointestinal: see HPI Genitourinary: see HPI Musculoskeletal: see HPI Skin: see HPI Psychiatric/Neurological: See HPI Focused Exam Height, Weight, BMI Height: 5'4.00" Weight: 228lbs. 0.0oz. 103.969274yt; 34.00 BMI Method:Stated Exam Exam Patient acknowledged, consented, and participated in this virtual visit which was conducted using real time audio/video Vital Signs Date Time Temp Pulse Resp B/P (MAP) Pulse Ox O2 Delivery O2 Flow Rate FiO2 08/31/22 19:21 84 97 21 08/31/22 18:04 42 13 119/58 96 Room Air 08/31/22 17:28 46 91/53 08/31/22 14:15 131 150/86 08/31/22 13:18 36.5 142 18 114/84 (94) 97 Room Air 08/31/22 13:18 Room Air Height & Weight Height: 5'4.00" Weight: 228lbs. 0.0oz. 103.017225ml; 34.00 BMI Method:Stated General Appearance: No Apparent Distress, WD/WN HEENT: PERRL/EOMI, Normal ENT Inspection Neck: Normal Inspection; No JVD Respiratory: Lungs Clear, Normal Breath Sounds, No Accessory Muscle Use Cardiovascular: No Murmur, Irregularly Irregular, Tachycardia, Other (Chronic pitting lower extremity edema) Capillary Refill: Less Than 3 Seconds Gastrointestinal: normal bowel sounds, non tender Extremity: Non Tender, Pedal Edema, Swelling Neurologic/Psychiatric: Alert, Oriented x3, No Motor/Sensory Deficits, Normal Mood/Affect Skin: Normal Color, Warm/Dry Results Lab Laboratory Tests 08/31/22 13:30 Assessment/Plan Assessment/Plan a fib with RVR, will continue to hold amiodarone drip. Continue Apixiban, monitor HR, Cardologist to see in am Critical Care: Critically Ill Patient Time spent with patient (mins): 20 DELFINA TRINH MD Aug 31, 2022 21:01
[2022-08-31 23:12] VITALS: BP 122/54
[2022-09-01 04:27] VITALS: BP 126/61
[2022-09-01 04:41] LABS: BASOPHILS % (AUTO) 0 % (0-10); EOSINOPHILS # (AUTO) 0.3 10^3/uL (0.0-0.3); EOSINOPHILS % (AUTO) 3 % (0-10); HEMATOCRIT 35 % (35-52); HEMOGLOBIN 11.2 g/dL (11.5-16.0); LYMPHOCYTES # (AUTO) 2.4 10^3/uL (1.0-4.0); LYMPHOCYTES % (AUTO) 26 % (12-44); MEAN CORPUSCULAR HEMOGLOBIN 28 pg (25-34); MEAN CORPUSCULAR HGB CONC 33 g/dL (32-36); MEAN CORPUSCULAR VOLUME 87 fL (80-99); MEAN PLATELET VOLUME 10.3 fL (9.0-12.2); MONOCYTES # (AUTO) 0.7 10^3/uL (0.0-1.0); MONOCYTES % (AUTO) 7 % (0-12); NEUTROPHILS % (AUTO) 64 % (42-75); PLATELET COUNT 192 10^3/uL (130-400); WHITE BLOOD COUNT 9.4 10^3/uL (4.3-11.0)
[2022-09-01 05:08] LABS: ALBUMIN 3.1 GM/DL (3.2-4.5); BILIRUBIN,TOTAL 0.4 MG/DL (0.1-1.0); CALCIUM 8.3 MG/DL (8.5-10.1); CREATININE SERUM 0.77 MG/DL (0.60-1.30); MAGNESIUM 2.1 MG/DL (1.6-2.4); PHOSPHORUS 3.4 MG/DL (2.3-4.7); POTASSIUM 3.9 MMOL/L (3.6-5.0); TOTAL PROTEIN 5.1 GM/DL (6.4-8.2)
[2022-09-01] MEDS ORDERED: POTASSIUM CL 10MEQ/50ML IVPB 50 ML IV SCH (06:00)
[2022-09-01] MEDS ORDERED: KCL 20 MEQ TAB (K-DUR) PO SCH (06:00)
[2022-09-01] MEDS ORDERED: MAGNESIUM 1 GM/100 ML IVPB 100 ML IV SCH (06:00)
[2022-09-01] MEDS: SENNOSIDES 8.6 MG (SENOKOT) TAB PO SCH (07:36)
[2022-09-01] MEDS: DOCUSATE SODIUM 100 MG (COLACE) CAP PO SCH (07:36)
[2022-09-01 07:56] VITALS: BP 145/78
--- NOTE | 2022-09-01 08:10 | Consultation-Cardiology ---
HPI-Cardiology Cardiology Consultation Date of Consultation 09/01/22 Date of Admission Time Seen by Provider: 08:05 Indication: Atrial fibrillation HPI 76-year-old lady with history of paroxysmal atrial fibrillation. She has been in and out of atrial fibrillation with rapid ventricular response, noted that her heart rate was racing. She was started on amiodarone in the emergency room and became bradycardic, currently borderline bradycardic, asymptomatic. Denied any chest pain. No syncope or near syncopal episodes. Patient had 4 visits to the emergency room for episodes of atrial fibrillation with rapid ventricular response since May 2022. Home Medications & Allergies Allergies: Coded Allergies: Sulfa (Sulfonamide Antibiotics) (Verified Allergy, Unknown, 06/24/15) Home Medication List Reviewed: Yes HBS-Ufpsxn-Ywtodl Hx Patient Social History Marital Status: Employed/Student: retired Smoking Status: Former Smoker Type Used: Cigarettes Recent Hopitalizations: No Have you traveled recently?: No Alcohol Use?: No Immunizations Up To Date Date of Influenza Vaccine: Apr 24, 2022 Past Medical History Discussed below Family Medical History Significant Family History: No Pertinent Family Hx Review of Systems-General Review of Systems Constitutional: see HPI EENTM: see HPI Respiratory: see HPI; No cough, No dyspnea on exertion, No hemoptysis, No orthopnea, No phlegm, No short of breath, No stridor, No wheezing, No other Cardiovascular: see HPI; No chest pain, No edema, No Hx of Intervention; palpitations; No syncope, No vascular heart diseas, No other Gastrointestinal: see HPI Genitourinary: see HPI Musculoskeletal: see HPI Skin: see HPI Psychiatric/Neurological: See HPI Reviewed Test Results Reviewed Test Results Lab Laboratory Tests Test 08/31/22 13:30 09/01/22 04:32 Range/Units White Blood Count 10.7 9.4 4.3-11.0 10^3/uL Red Blood Count 4.72 3.99 3.80-5.11 10^6/uL Hemoglobin 13.3 11.2 L 11.5-16.0 g/dL Hematocrit 40 35 35-52 % Mean Corpuscular Volume 85 87 80-99 fL Mean Corpuscular Hemoglobin 28 28 25-34 pg Mean Corpuscular Hemoglobin Concent 33 33 32-36 g/dL Red Cell Distribution Width 14.0 14.3 10.0-14.5 % Platelet Count 247 192 130-400 10^3/uL Mean Platelet Volume 10.5 10.3 9.0-12.2 fL Immature Granulocyte % (Auto) 0 0 % Neutrophils (%) (Auto) 68 64 42-75 % Lymphocytes (%) (Auto) 23 26 12-44 % Monocytes (%) (Auto) 7 7 0-12 % Eosinophils (%) (Auto) 2 3 0-10 % Basophils (%) (Auto) 0 0 0-10 % Neutrophils # (Auto) 7.3 6.0 1.8-7.8 10^3/uL Lymphocytes # (Auto) 2.4 2.4 1.0-4.0 10^3/uL Monocytes # (Auto) 0.7 0.7 0.0-1.0 10^3/uL Eosinophils # (Auto) 0.2 0.3 0.0-0.3 10^3/uL Basophils # (Auto) 0.0 0.0 0.0-0.1 10^3/uL Immature Granulocyte # (Auto) 0.0 0.0 0.0-0.1 10^3/uL Sodium Level 142 141 135-145 MMOL/L Potassium Level 4.0 3.9 3.6-5.0 MMOL/L Chloride Level 107 110 H 98-107 MMOL/L Carbon Dioxide Level 23 23 21-32 MMOL/L Anion Gap 12 8 5-14 MMOL/L Blood Urea Nitrogen 15 18 7-18 MG/DL Creatinine 0.78 0.77 0.60-1.30 MG/DL Estimat Glomerular Filtration Rate 79 80 BUN/Creatinine Ratio 19 23 Glucose Level 118 H 102 70-105 MG/DL Calcium Level 8.8 8.3 L 8.5-10.1 MG/DL Magnesium Level 2.2 2.1 1.6-2.4 MG/DL TSH [place] Testing 2.12 0.35-4.94 UIU/ML Corrected Calcium 9.0 8.5-10.1 MG/DL Phosphorus Level 3.4 2.3-4.7 MG/DL Total Bilirubin 0.4 0.1-1.0 MG/DL Aspartate Amino Transf (AST/SGOT) 11 5-34 U/L Alanine Aminotransferase (ALT/SGPT) 21 0-55 U/L Alkaline Phosphatase 74 40-136 U/L Total Protein 5.1 L 6.4-8.2 GM/DL Albumin 3.1 L 3.2-4.5 GM/DL Physical Exam Physical Exam Vital Signs Vital Signs - First Documented 08/31/22 08/31/22 13:18 19:21 Temp 36.5 Pulse 142 Resp 18 B/P (MAP) 114/84 (94) Pulse Ox 97 O2 Delivery Room Air FiO2 21 Capillary Refill : Less Than 3 Seconds Height, Weight, BMI Height: 5'4.00" Weight: 228lbs. 0.0oz. 103.126033ah; 34.61 BMI Method:Stated General Appearance: No Apparent Distress, WD/WN HEENT: PERRL/EOMI, Normal ENT Inspection Neck: Normal Inspection; No JVD Respiratory: Lungs Clear, Normal Breath Sounds, No Accessory Muscle Use Cardiovascular: No Murmur, Irregularly Irregular, Tachycardia, Other (Chronic pitting lower extremity edema) Gastrointestinal: Non Tender, Soft Extremity: Non Tender, Pedal Edema, Swelling Neurologic/Psychiatric: Alert, Oriented x3, No Motor/Sensory Deficits, Normal Mood/Affect Skin: Normal Color, Warm/Dry A/P-Cardiology Admission Diagnosis Paroxysmal atrial fibrillation Sinus bradycardia Hypertension Palpitation Assessment/Plan Paroxysmal atrial fibrillation with rapid ventricular response Has been maintained on Coreg, had multiple episodes of atrial fibrillation Started on amiodarone, having bradycardia at this time. I will discontinue Coreg and start Multaq 400 mg twice daily and evaluate tolerance and response Palpitation, secondary to atrial fibrillation, feeling better [id number] score 4, maintained on Eliquis. Continue with Eliquis. Stress test was done in August 2018 showing no ischemia or infarction with ejection fraction 76% 2D echo done in April 2021 with a EF 55 to 60%, mild mitral regurgitation, mildly dilated left atrium, PA pressure 25 to 30 mmHg Hypertension, controlled at this time History of tobaccoism stopped smoking 1983 History of pedal edema Obstructive sleep apnea treated with CPAP. Mild bilateral carotid stenosis last ultrasound was done in January 2020 BMI 34. WHITLEY RAY MD Sep 01, 2022 08:10
[2022-09-01] MEDS: APIXABAN 5 MG (ELIQUIS) TABLET PO SCH (08:18)
[2022-09-01] MEDS ORDERED: LOSARTAN 100 MG (COZAAR) TABLET PO SCH (09:00)
[2022-09-01] MEDS ORDERED: LOSARTAN 50 MG (COZAAR) TAB PO SCH (09:00)
[2022-09-01] MEDS ORDERED: DRONEDARONE 400 MG TABLET PO SCH (09:00)
[2022-09-01] MEDS ORDERED: CARV12.53 PO (10:15)
[2022-09-01] MEDS ORDERED: CYAN500T8 PO (10:15)
[2022-09-01] MEDS ORDERED: ACET-2267 PO (10:15)
[2022-09-01] MEDS ORDERED: CHOL200074 PO (10:15)
[2022-09-01] MEDS ORDERED: ASCO-262 PO (10:15)
[2022-09-01] MEDS ORDERED: MULT-1136 PO (10:15)
--- NOTE | 2022-09-01 10:52 | Short Stay Summary-Hospitalist ---
History of Present Illness HPI/Chief Complaint CC: AF RVR HPI: This is a 76yoWF with known hx of AF who has recurrent AF RVR so she was placed in hospital and meds were overhauled by Cardiology and currently she remains rate controlled and ready to DC after Cardiology approves. Source: patient Exam Limitations: no limitations Date Seen 09/01/22 Time Seen by a Provider: 10:00 Attending Physician [facility] PCP Admitting Physician: Ella Colindres DO Attending Physician: Ella Colindres DO Referring Physician Date of Admission Aug 31, 2022 at 18:16 Home Medications & Allergies Home Medications Reviewed patient Home Medication Reconciliation performed by pharmacy medication reconciliations medical technicians and/or nursing. Patients Allergies have been reviewed. Allergies Allergies Coded Allergies Sulfa (Sulfonamide Antibiotics) (Verified Allergy, Unknown, 06/24/15) Past Ezklvji-Dphgvq-Rrtcup Hx Patient Social History Marrital Status: Employed/Student: retired Tobacco Use?: No Smoking Status: Former Smoker Use of E-Cig and/or Vaping dev: No Substance use?: No Alcohol Use?: No Pt feels they are or have been: No Immunizations Up To Date Date of Influenza Vaccine: Apr 24, 2022 First/Initial COVID19 Vaccinat: JUL 2020 Second COVID19 Vaccination Rolo: SEPTEMBER 2020 Tetanus Booster (TDap): Unknown PED Vaccines UTD: Yes Seasonal Allergies Seasonal Allergies: Yes Current Status status: No Advance Directives: No Communicates: Verbally Primary Language: Dutch Preferred Spoken Language: Dutch Is interpretation needed?: No Sensory deficits: Vision impairment Implanted or Applied Medical D: None Past Medical History Surgeries: Adenoidectomy, Orthopedic, Tonsillectomy COPD Atrial Fibrillation, Chronic Edema/Swelling, High Cholesterol, Hypertension 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 0.0oz. 103.204792kd; 34.61 BMI Method:Stated General Appearance: No Apparent Distress, WD/WN HEENT: PERRL/EOMI, Normal ENT Inspection Neck: Normal Inspection; No JVD Respiratory: Lungs Clear, Normal Breath Sounds, No Accessory Muscle Use Cardiovascular: No Murmur, Irregularly Irregular, Tachycardia, Other (Chronic pitting lower extremity edema) Gastrointestinal: Non Tender, Soft Extremity: Non Tender, Pedal Edema, Swelling Neurologic/Psychiatric: Alert, Oriented x3, No Motor/Sensory Deficits, Normal Mood/Affect Skin: Normal Color, Warm/Dry Results Results/Procedures Labs Laboratory Tests 08/31/22 13:30 09/01/22 04:32 Patient resulted labs reviewed. Short Stay Diagnosis Discharge Diagnosis-Short Stay Admission Diagnosis AF RVR Final Discharge Diagnosis AF now rate controlled Conclusion Plan CT ELLA Suarez DO Sep 01, 2022 10:52
[2022-09-01] MEDS ORDERED: DRON400T6 PO (12:34)
== END 2022-09-01 14:00 | disposition home or self-care (01) ==
LOC: EDUNIT# 13:15 → ER 13:17 → ICU 18:16 → CSD 22:02
PROVIDERS: ADMIT Internal Medicine; ATTEND Internal Medicine
DX: I48.0 Paroxysmal atrial fibrillation (principal); I48.20 Chronic atrial fibrillation, unspecified; I10 Essential (primary) hypertension; G47.33 Obstructive sleep apnea (adult) (pediatric); I65.23 Occlusion and stenosis of bilateral carotid arteries; Z87.2 Personal history of diseases of the skin and subcutaneous tissue; Z79.01 Long term (current) use of anticoagulants; Z87.891 Personal history of nicotine dependence
CPT/HCPCS: 71045; 80048; 80053; 83735 ×2; 84100; 84443; 85025 ×2; 87081; 93005; 93041; 99284; G0378 ×2; 36415

== ENCOUNTER → 2022-09-27 | Outpatient (CLI) | payer MEDICARE, OTHER ==
[~2022-09-27] MED LIST changes: +ACET-2267 PO; +ASCO-262 PO; +CARV12.53 PO; +CHOL200074 PO; +CYAN500T8 PO; +DRON400T6 PO; +FLUT16SP22 NSEACH; +LEVO5TAB12 PO; +MULT-1136 PO
== END ==
LOC: CARD 10:32
PROVIDERS: ATTEND Internal Medicine Cardiovascular Disease
DX: I48.0 Paroxysmal atrial fibrillation (principal)
CPT/HCPCS: 93306

== ENCOUNTER → 2022-09-29 | Outpatient (CLI) | payer MEDICARE, OTHER ==
[~2022-09-29] VITALS: Ht 162.6 cm; Wt 89.1 kg
[~2022-09-29] MED LIST changes: +LIDOCAINE 1% INJ 30 ML (XYLOCAINE) VIAL INJ ONE
--- NOTE | 2022-09-29 11:26 | Diagnostic Imaging Report ---
INDICATION: Right breast calcifications. Patient presents for stereotactic biopsy. DETAILS OF THE PROCEDURE: The patient was brought to the stereotactic suite and placed in a chair in a sitting upright position. The right breast was positioned mediolateral. Imaging of the right breast was performed. A cluster of microcalcifications in the lower slightly inner aspect of the right breast was stereotactically targeted. All images were viewed on a dedicated workstation. Next, the medial right breast was prepped and draped in the usual sterile fashion. A small amount of 1% lidocaine was utilized for local anesthesia. An 8-gauge stereotactic vacuum-assisted needle was advanced and placed per stereotactic coordinates. A total of four core biopsies was obtained. A specimen radiograph was obtained demonstrating only a single calcification within sample labeled #3; therefore, four additional core biopsies were obtained with a vacuum-assisted device. Specimen radiograph demonstrates numerous microcalcifications within sample labeled #8. A marker clip was then deployed. The needle was removed and hemostasis was obtained. The patient tolerated the procedure well and obtained a post procedure mammogram in satisfactory condition. The followup 2D CC and ML mammogram does show post biopsy changes to the right breast. There is a clip in the lower right breast. CC view does show the clip to be just lateral to the nipple line which could be owing to slight migration. The previously noted suspicious calcifications have been removed. IMPRESSION: Stereotactic biopsy of right breast calcifications, as described, utilizing a vacuum-assisted device. Pathology results are currently pending. Dictated by: Dictated on workstation # [id number]
== END ==
LOC: RAD 09:40
PROVIDERS: ATTEND Nurse Practitioner Family
DX: R92.1 Mammographic calcification found on diagnostic imaging of breast (principal)
CPT/HCPCS: 19081; A4648

== ENCOUNTER → 2022-10-22 | Outpatient (CLI) | payer MEDICARE, OTHER ==
[~2022-10-22] VITALS: Ht 162 cm; Wt 89.0 kg
[~2022-10-22] MED LIST changes: +CATHETER FLUSH 10 ML SYR IVP PRN; -LIDOCAINE 1% INJ 30 ML (XYLOCAINE) VIAL INJ ONE; +REGADENOSON 0.4 MG/5 ML SYR (LEXISCAN) IV ONE
[2022-10-22 08:18] VITALS: BP 149/93
--- NOTE | 2022-10-25 22:24 | STRESS TEST ---
DATE OF SERVICE: 10/22/2022 RESTING AND POST REGADENOSON TECHNETIUM-99M TETROFOSMIN SPECT CT IMAGING ORDERING PHYSICIAN: Hazel Sosa APRN. PRIMARY PHYSICIAN: [facility]. OTHER PHYSICIAN: Dr. Chen. CLINICAL DIAGNOSIS: Paroxysmal atrial fibrillation. Baseline images were carried out after injection of 10.67 mCi of technetium-99m tetrofosmin. This was followed by 0.4 mg regadenoson and 32 mCi of technetium-99m tetrofosmin for stress imaging. Electrocardiogram showed sinus rhythm. Some isolated premature atrial and ventricular contractions were seen during the study. She tolerated the procedure well. The electrocardiogram did not change significantly with regadenoson infusion. She did notice some shortness of breath following regadenoson infusion, which resolved in a few minutes. Review of images at rest and following stress does not indicate any significant perfusion defects consistent with myocardial ischemia or infarction. Gated images show normal global left ventricular systolic function with normal regional wall motion. Left ventricular ejection fraction is calculated to be 71%. CONCLUSIONS: 1. No evidence of any significant myocardial ischemia or infarction on this study. 2. Normal regional wall motion. 3. Normal global left ventricular systolic function with a calculated ejection fraction of 71%. Job ID: [id number] DocumentID: [id number] Dictated Date: 10/25/2022 17:15:49 Ship Steward Date: 10/25/2022 22:22:00 Dictated By: DHIRAJ CHEN MD; USHA; FACP; FACC;
== END ==
LOC: CARD 06:57
PROVIDERS: ATTEND Nurse Practitioner Family
DX: I48.0 Paroxysmal atrial fibrillation (principal)
CPT/HCPCS: 78452; 93017; A9502

== ENCOUNTER → 2022-12-28 | Outpatient (CLI) | payer MEDICARE, OTHER ==
[~2022-12-28] MED LIST changes: -CATHETER FLUSH 10 ML SYR IVP PRN; +POTA-330 PO; -POTA-51 PO; -REGADENOSON 0.4 MG/5 ML SYR (LEXISCAN) IV ONE
--- NOTE | 2022-12-28 14:26 | Diagnostic Imaging Report ---
INDICATION: Postmenopausal state COMPARISON: 03/06/2019 FINDINGS: AP Spine L1-L4: [BMD (g/cm2): 1.152] [T-Score: -0.4] [Z-Score: 0.6] [BMD Previous: 1.142] [BMD % Change: 0.9] LT Hip Neck: [BMD (g/cm2): 0.818] [T-Score: -1.6] [Z-Score: -0.1] LT Hip Total: [BMD (g/cm2):0.960] [T-Score:-0.4] [Z-Score: 0.8] [BMD Previous: 0.997] [BMD % Change: -3.7*] RT Hip Neck: [BMD (g/cm2):0.774] [T-Score:-1.9] [Z-Score:-0.4] RT Hip Total: [BMD (g/cm2):0.885] [T-score:-1.0] [Z-Score:0.3] [BMD Previous:0.948] [BMD % Change:-6.6*] *Indicates significant change from prior examination based on 95% confidence level. World Health Organization criteria for BMD interpretation classify patients as Normal (T-score at or above -1.0), Osteopenic (T-score between -1.0 and -2.5) or Osteoporotic (T-score at or below -2.5). LIMITATIONS AND MODIFICATION: None. FRACTURE RISK (FRAX SCORE): The ten year probability of (%): Major Osteoporotic Fracture: [12.6] Hip Fracture: [3.1] IMPRESSION: 1. Osteopenia (Low bone mass). 2. Bone mineral density within the bilateral hips has significantly decreased since the prior examination. Bone mineral density within the lumbar spine is not significantly changed. 3. See below National Osteoporosis Foundation guidelines on when to potentially initiate pharmacologic therapy. Based on the National Osteoporosis Foundation Guidelines, pharmacologic treatment should be initiated in any of the following, unless clinical conditions suggest otherwise: * Any patient with prior fragility fracture of the hip or vertebrae. A spine fracture indicates 5X risk for subsequent spine fracture and 2X risk for subsequent hip fracture. * Osteoporosis (T-score <-2.5). * Postmenopausal women and men age 50 and older with low bone mass/osteopenia (T-score between -1.0 and -2.5) by DXA and 10-year major osteoporotic fracture greater than 20% or a 10-year probability of hip fracture greater than 3%. These fracture risks are supplied above in the FRAX score, if applicable. * Clinician judgement and/or patient preferences may indicate treatment for people with 10-year fracture probabilities above or below these levels. Dictated by: Dictated on workstation # [id number]
== END ==
LOC: RAD 11:43
PROVIDERS: ATTEND Nurse Practitioner Family
DX: Z13.820 Encounter for screening for osteoporosis (principal); M85.80 Other specified disorders of bone density and structure, unspecified site
CPT/HCPCS: 77080

== ENCOUNTER 2023-03-11 20:29 | Emergency (ER) | payer MEDICARE, OTHER ==
[~2023-03-11] VITALS: Ht 162.6 cm; Wt 89.4 kg
[2023-03-11 20:39] VITALS: BP 146/72
--- NOTE | 2023-03-11 20:55 | ED Fall/Injury ---
General Chief Complaint: Trauma-Non Activation Stated Complaint: FALL/HIT HEAD Source: patient Exam Limitations: no limitations History of Present Illness Date Seen by Provider: Mar 11, 2023 Time Seen by Provider: 20:50 Initial Comments Patient is a 77-year-old female who presents ED after evaluation of fall. She fell 1 hour ago. She was walking inside her house tripped through the door hitting the right side of her head on the stairs inside her house. No loss of conscious but is on Eliquis. She reports mild pain to the right side head and neck. She also landed on her right shoulder which took most of the fall. Mild pain with movement and on palpation. She did take some Tylenol. Patient denies of any middle lower back pain, chest pain, pain with deep inspiration, abdominal pain,vomiting, diarrhea, visual changes, dysuria, hematuria. Patient denies of any blurry version, vomiting, unilateral weakness. She denies any bruising or swelling. Able to ambulate without difficulties. Neuro exam unremarkable Allergies and Home Medications Allergies Coded Allergies: Sulfa (Sulfonamide Antibiotics) (Verified Allergy, Unknown, 06/24/15) Patient Home Medication List Home Medication List Reviewed: Yes Acetaminophen (Tylenol Extra Strength) 500 Mg Tablet, 500-1,000 MG PO Q8H PRN for PAIN-MILD (1-4), (Reported) Entered as Reported by: SIGRID OCAMPO on 09/01/22 1015 Apixaban (Eliquis) 5 Mg Tablet, 5 MG PO BID WITH MEALS, (Reported) Entered as Reported by: ANDER TEIXEIRA on 04/05/21 1326 Ascorbate Calcium (Vitamin C) 500 Mg Tablet, 500 MG PO DAILY, (Reported) Entered as Reported by: SIGRID OCAMPO on 09/01/22 1015 Cholecalciferol (Vitamin D3) (Vitamin D3) 50 Mcg (2000 Unit) Capsule, 50 MCG PO 1800, (Reported) Entered as Reported by: SIGRID OCAMPO on 09/01/22 1015 Cyanocobalamin (Vitamin B-12) (Vitamin B-12) 500 Mcg Tablet, 500 MCG PO 1800, (Reported) Entered as Reported by: SIGRID OCAMPO on 09/01/22 1015 Doxazosin Mesylate (Doxazosin Mesylate) 2 Mg Tablet, 2 MG PO 1800, (Reported) Entered as Reported by: ANDER TEIXEIRA on 04/05/21 1332 Dronedarone HCl (Multaq) 400 Mg Tablet, 400 MG PO BID Prescribed by: CARMEN HERRING on 09/01/22 1234 Fluticasone Propionate (Fluticasone Propionate) 50 Mcg/Actuation [place].susp, 1 SPRAY NSEACH BID PRN for CONGESTION, (Reported) Entered as Reported by: CHRISTINA DOBSON on 08/31/22 1848 Levocetirizine Dihydrochloride (Levocetirizine Dihydrochloride) 5 Mg Tablet, 5 MG PO 1800, (Reported) Entered as Reported by: CHRISTINA DOBSON on 08/31/22 1848 Losartan Potassium (Losartan Potassium) 50 Mg Tablet, 50 MG PO DAILY, (Reported) Entered as Reported by: MARÍA ROCK on 06/24/15 0142 Multivitamin (Multivitamin) 1 Each Tablet, 1 EACH PO DAILY, (Reported) Entered as Reported by: SIGRID OCAMPO on 09/01/22 1015 Review of Systems Review of Systems Constitutional: No chills, No diaphoresis Eyes: Denies Drainage, Denies Decreased Acuity Ears, Nose, Mouth, Throat: denies ear pain, denies ear discharge Respiratory: No cough Cardiovascular: No chest pain Gastrointestinal: No abdominal pain, No diarrhea, No nausea, No vomiting Genitourinary: No decreased output Musculoskeletal: joint pain; No joint swelling; muscle pain Skin: No change in color, No change in hair/nails Psychiatric/Neurological: Headache All Other Systems Reviewed Negative Unless Noted: Yes Past Mytmnct-Yvsfct-Dcqrzn Hx Immunizations Up To Date PED Vaccines UTD: Yes First/Initial COVID19 Vaccinat: JUL 2020 Second COVID19 Vaccination Rolo: SEPTEMBER 2020 Third COVID19 Vaccination Date: 2020 Seasonal Allergies Seasonal Allergies: Yes Past Medical History Surgery/Hospitalization HX: AFIB, HTN, COPD RIGHT KNEE REPLACEMENT, TONSILS Surgeries: Yes (CARDIAC CATH--NO INTERVENTION; RIGHT KNEE SURGERY 1981) Adenoidectomy, Orthopedic, Tonsillectomy Respiratory: Yes COPD Cardiac: Yes Atrial Fibrillation, Chronic Edema/Swelling, High Cholesterol, Hypertension 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 0.0oz. [id number]; 33.91 BMI Method:Stated General Appearance: WD/WN, no apparent distress HEENT: PERRL/EOMI, normal ENT inspection, TMs normal, pharynx normal Neck: full range of motion, other (Sided cervical paraspinal muscle tenderness. Mild tenderness with range of motion. No cervical midline tenderness) Cardiovascular: regular rate, rhythm, no edema, no gallop, no JVD Respiratory: chest non-tender, lungs clear, normal breath sounds, no respiratory distress, no accessory muscle use Gastrointestinal: normal bowel sounds, non tender, soft, no organomegaly Back: normal inspection, no CVA tenderness, no vertebral tenderness Extremities: normal inspection, no pedal edema, other (Right posterior shoulder tenderness. Normal active range of motion. 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 She does take Eliquis. She is complaining of right-sided hip pain right-sided cervical neck pain and right shoulder pain. No loss of consciousness vomiting, change in mental status. Nontrauma activation. GCS 15. Alert and orient x4. Very minimal tenderness right sided scalp without contusion or redness. No cervical midline tenderness but has some right-sided cervical paraspinal muscle tenderness. Shoulder exam shows some right posterior shoulder tenderness with normal range of motion appropriate strength. Due to mechanism of injury CT scan the head cervical spine and right shoulder x-ray was ordered. X-ray of the right shoulder negative for fracture or dislocation. CT scan of the head and cervical neck negative for acute abnormality. She did take Tylenol right before arrival. She refused anything for pain. No evidence of concussion-like symptoms. If any worsening symptoms such as head pain, vomiting, change in mental status to return back to ED. Continue with Tylenol at home. Follow-up with PCP in 2 days for reevaluation. Orthopedic follow-up for right shoulder. Likely more shoulder sprain. CT scan did note a thyroid nodule. Outpatient follow-up nonemergent. Impression Primary Impression: Head injury Disposition: 01 HOME, SELF-CARE Condition: Stable Departure-Patient Inst. Decision time for Depature: 21:10 Referrals: RADHA CHOWDHURY APRN (PCP) Primary Care Physician Patient Instructions: Minor Head Injury, Adult ED Add. Discharge Instructions: Continue resting at home. If any worsening hip pain, visual changes vomiting to return back to ED. Orthopedic outpatient follow-up for the right shoulder as needed. Recommend stretching. All discharge instructions reviewed with patient and/or family. Voiced understanding. VINICIUS MARQUEZ Mar 11, 2023 20:54
--- NOTE | 2023-03-11 21:13 | Diagnostic Imaging Report ---
INDICATION: Right shoulder pain COMPARISON: None. FINDINGS: Three views of the right shoulder were obtained. There is no fracture, dislocation or other acute bony abnormality identified. Degenerative changes are noted. The soft tissues appear unremarkable. No radiopaque foreign body is identified. The visualized portions of the right lung are clear. IMPRESSION: No acute fracture or dislocation of the right shoulder. Dictated by: Dictated on workstation # [id number]
--- NOTE | 2023-03-11 21:30 | Diagnostic Imaging Report ---
PROCEDURE: CT head and CT cervical spine without contrast. TECHNIQUE: Multiple contiguous axial images were obtained through the brain and cervical spine without the use of intravenous contrast. Sagittal and coronal reformations through the cervical spine were then performed. Auto Exposure Controls were utilized during the CT exam to meet ALARA standards for radiation dose reduction. INDICATION: Fall. Head and neck pain. COMPARISON: None. FINDINGS: CT HEAD: The ventricles and cortical sulci are diffusely prominent, compatible with age-related volume loss. There is no midline shift or mass-effect. No acute intra-axial hemorrhage is seen. There are no abnormal area of increased or decreased density to suggest acute hemorrhage or edema. No extra-axial mass or collection is present. The bony calvarium is intact. The visualized paranasal sinuses are unremarkable. The mastoid air cells are clear. CT CERVICAL SPINE: Static alignment of the cervical spine is maintained. There is no significant anterolisthesis or retrolisthesis. There is no evidence of jumped facets. Vertebral body heights are maintained. There is no acute fracture. No bony fragment is seen within the spinal canal. Multilevel degenerative changes are noted consistent with intervertebral disc height loss with anterior and posterior endplate osteophyte formations. These changes appear greatest at the C6-C7 level. Prevertebral and paravertebral soft tissue structures are unremarkable. Hypodensity of the right thyroid lobe measures 1 cm. There is calcified carotid atherosclerosis. Included portions of the lung apices are clear. IMPRESSION: 1. No acute intracranial abnormality. No CT evidence of mass, acute infarct or intracranial hemorrhage. 2. No acute fracture or dislocation of the cervical spine. 3. Right thyroid nodule. Further characterization with dedicated thyroid sonogram is advised and could be performed on a nonemergent basis. Dictated by: Dictated on workstation # [id number]
== END 2023-03-11 21:44 | disposition home or self-care (01) ==
LOC: EDUNIT# 20:29 → ER 20:30
DX: S09.90XA Unspecified injury of head, initial encounter (principal); E04.1 Nontoxic single thyroid nodule; M54.2 Cervicalgia; M25.551 Pain in right hip; M25.511 Pain in right shoulder; Z79.01 Long term (current) use of anticoagulants; W01.198A Fall on same level from slipping, tripping and stumbling with subsequent striking against other object, initial encounter; Y92.009 Unspecified place in unspecified non-institutional (private) residence as the place of occurrence of the external cause; Y93.01 Activity, walking, marching and hiking
CPT/HCPCS: 70450; 72125; 73030

== ENCOUNTER 2023-05-09 10:45 | Outpatient (RCR) | payer MEDICARE, OTHER | END 2023-05-09 11:14 | disposition home or self-care (01) | PROVIDERS: ATTEND Nurse Practitioner Family | DX: M62.830 Muscle spasm of back (principal) ==